=== PATIENT | male | born 1935 | race Caucasian/White ===

== ENCOUNTER 2017-11-29 19:01 | Inpatient (IN) | payer BC, OTHER ==
--- NOTE | 2017-11-29 19:40 | PDOC ---
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 The patient is complaining he is unable to lay flat and must sleep on 3 pillows. The patient ambulates with a cane and has to stop after 1 block secondary to his SOB. The patient was seen by Dr. Crump 2 weeks ago who prescribed him 20g of lasix three times per week. The patient denies chest pain, headache and dizziness. Denies fever, chills, nausea, vomit, diarrhea and constipation. Denies dysuria, frequency, urgency and hematuria. Allergies: NKA Past surgical history: None reported. Social history: No reported alcohol, drug, or cigarette use. PCP: Dr. Crump <Dayna Langley - Last Filed: 11/29/17 20:45> - General History Source: Patient Exam Limitations: No Limitations <Amee Mendoza - Last Filed: 11/29/17 21:34> - General Chief Complaint: Respiratory Stated Complaint: RESPIRATORY DISTRESS Time Seen by Provider: 11/29/17 19:40 Past History <Dayna Langley - Last Filed: 11/29/17 20:45> <Amee Mendoza - Last Filed: 11/29/17 21:34> - Past Medical History Allergies/Adverse Reactions: Allergies Allergy/AdvReac Type Severity Reaction Status Date / Time No Known Allergies Allergy Verified 11/29/17 19:38 Review of Systems - Review of Systems Able to Perform ROS?: Yes Comments:: 11/29/17 20:57 ROS: A complete review of 10 out of 10 review of systems is taken and is negative apart from what is previously mentioned below and in the HPI. <Dayna Langley - Last Filed: 11/29/17 20:45> *Physical Exam - Vital Signs Last Vital Signs Temp Pulse Resp BP Pulse Ox 80 18 152/95 95 11/29/17 19:39 11/29/17 19:39 11/29/17 19:39 11/29/17 19:39 - Physical Exam Comments: 11/29/17 20:45 GENERAL: The patient is in no acute distress. HEAD: Normal with no signs of trauma. EYES: PERRLA, EOMI, sclera anicteric, conjunctiva clear. ENT: Ears normal, nares patent, oropharynx clear without exudates. Moist mucous membranes. NECK: Normal range of motion, supple without lymphadenopathy, JVD, or masses. LUNGS: (+) Crackles throughout all lung lindquist. No wheezes. HEART:Regular rate and rhythm, normal S1 and S2 without murmur, rub or gallop. ABDOMEN: Soft, nontender, normoactive bowel sounds. No guarding, no rebound. No masses palpable. EXTREMITIES: (+) 1+ pitting edema. Normal range of motion, no edema. No clubbing or cyanosis. No erythema, or tenderness. NEUROLOGICAL: Cranial nerves II through XII grossly intact. Normal speech. No focal neurological deficits. MUSCULOSKELETAL: Back non-tender to palpation, no CVA tenderness SKIN: Warm, Dry, normal turgor, no rashes or lesions noted. <Dayna Langley - Last Filed: 11/29/17 20:45> ED Treatment Course - LABORATORY CBC & Chemistry Diagram: 11/29/17 20:29 11/29/17 20:29 - Medications Given in the ED: ED Medications Discontinued Medications Generic Name Dose Route Start Last Admin Trade Name Freq PRN Reason Stop Dose Admin Furosemide 40 mg 11/29/17 20:30 11/29/17 20:43 Lasix Injection - IVPUSH 11/29/17 20:31 40 mg ONCE ONE Administration <Dayna Langley - Last Filed: 11/29/17 20:45> - LABORATORY CBC & Chemistry Diagram: 11/29/17 20:29 11/29/17 20:29 <Amee Mendoza - Last Filed: 11/29/17 21:34> Medical Decision Making - Medical Decision Making 11/29/17 20:32 Mr Tavarez is an 82 yo M with a history of HTN, HLD, CM, CHF, 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 Pt presents to the ER with family via EMS S/p shortness of breath, present for approximately 3 weeks Shortness of breath has been worsening No fevers or chills (+) cough Non productive Per family has complained of chest pain but he has no complaints of chest pain to me Pt can walk with a cane, has to stop after approximately 1 block Unable to lay flat (sleeps on 3 pillows) On examination: Crackles through out all lungs lindquist Pt with supplemental O2 in place RRR No abd tenderness 1+ pitting edema EKG: paced at 80bpm Will do Labs Continue supplemental O2 Portable CXR EKG lunchroom monitor Portable CXR: CARDIOMEGALY, PLEURAL EFFUSION LEFT SIDE, HILAR CONGESTION Will give Lasix 40mg IV 11/29/17 21:32 Laboratory Tests 11/29/17 11/29/17 11/29/17 20:29 20:29 20:29 WBC 7.4 Hgb 12.7 Hct 37.8 Plt Count 212 Sodium 139 Potassium 4.6 Chloride 107 Carbon Dioxide 25 BUN 22 H Creatinine 1.3 Random Glucose 129 H Creatine Kinase 84 Troponin I 0.03 B-Natriuretic Peptide 3424.52 H Urine Blood 2+ H Urine Nitrite Negative Ur Leukocyte Esterase Negative 11/29/17 21:[address] Mirza Will admit to tele Strict I&Os Clinical impression: CHF, initial presentation <Amee Mendoza - Last Filed: 11/29/17 21:34> *DC/Admit/Observation/Transfer - Attestations Scribe Attestion: 11/29/17 20:46 Documentation prepared by Dayna Langley, acting as medical detailist for Amee Mendoza MD. <Dayna Langley - Last Filed: 11/29/17 20:45> - Discharge Dispostion Admit: Yes <Amee Mendoza - Last Filed: 11/29/17 21:34> Diagnosis at time of Disposition: Congestive heart failure Qualifiers: Heart failure type: other Qualified Code(s): I50.9 - Heart failure, unspecified - Discharge Dispostion Condition at time of disposition: Good - Referrals Referrals: Sherice Crump MD [Primary Care Provider] - - Patient Instructions - Post Discharge Activity
[2017-11-29] MEDS ORDERED: FUROSEMIDE 40 MG/4 ML INJECTABLE VIAL IVPUSH ONE (20:30)
[2017-11-29 20:41] LABS: BASO % 0.7 % (0-2.0); EOS % 1.7 % (0-4.5); HEMATOCRIT 37.8 % (35.4-49); HEMOGLOBIN 12.7 GM/dL (11.7-16.9); MCHC 33.6 g/dl (32.0-35.9); MEAN CELL VOLUME 92.2 fl (80-96); MONO % 12.2 % (3.8-10.2); NEUT % 66.4 % (42.8-82.8); PLATELET COUNT 212 K/MM3 (134-434); RDW 13.5 % (11.9-15.9); WHITE BLOOD COUNT 7.4 K/mm3 (4.0-10.0)
[2017-11-29] MEDS ORDERED: FUROSEMIDE 40 MG/4 ML INJECTABLE VIAL ONE (20:45)
[2017-11-29 21:04] LABS: ALBUMIN 3.3 g/dl (3.4-5.0); ANION GAP 7 (8-16); BILIRUBIN,TOTAL 0.4 mg/dL (0.2-1.0); BLOOD UREA NITROGEN 22 mg/dL (7-18); CALCIUM 8.1 mg/dL (8.5-10.1); CHLORIDE 107 mmol/L (98-107); CO2 25 mmol/L (21-32); CREATININE 1.3 mg/dL (0.7-1.3); GLUCOSE,RANDOM 129 mg/dL (74-106); POTASSIUM 4.6 mmol/L (3.5-5.1); SGOT/AST 18 U/L (15-37); SGPT/ALT 39 U/L (12-78); SODIUM 139 mmol/L (136-145); TOT PROT 7.3 g/dl (6.4-8.2)
[2017-11-29 21:06] LABS: ALK PHOS 150 U/L (45-117); N-TERMINAL BNP 3424.52 pg/ml (5-450)
[2017-11-29 21:15] LABS: URINE APPEARANCE CLEAR; URINE BILIRUBIN NEGATIVE (<2.0 mg/dL); URINE BLOOD 2+ (NEGATIVE); URINE COLOR YELLOW; URINE GLUCOSE (UA) NEGATIVE (NEGATIVE); URINE KETONE NEGATIVE (NEGATIVE); URINE LEUK ESTERASE NEGATIVE (NEGATIVE); URINE NITRITE NEGATIVE (NEGATIVE); URINE PROTEIN 2+ (NEGATIVE)
--- NOTE | 2017-11-29 21:30 | PN ---
Teaching Attending Note Name of Resident: Rand Almanza ATTENDING PHYSICIAN STATEMENT I saw and evaluated the patient. I reviewed the resident's note and discussed the case with the resident. I agree with the resident's findings and plan as documented. SUBJECTIVE: 82 yo M with pmhx. of htn, hld, MIx5 (10/23), s/p ICD/PPM, CVA (07/23) [facility], CVA L. Residual Hemiparesis who presented with worsening shortness of breath. Also with non-productive cough that started 3 weeks ago. States he is unable to lay flat. Notes he needs to sleep with 3 pillows. States he is able to ambulate 1 block, until he gets short of breath. States he takes Lasix 20 mg three times a week and he has been complient with his meds. Notes no current chest pain or pressure. States shortness of breath has significantly since receiving Lasix. No N,V,D. Denies any fevers or chills. States he has never smoked. OBJECTIVE: Physical: VS: Initial Vital Signs Pulse Resp BP Pulse Ox 80 18 152/95 95 11/29/17 19:39 11/29/17 19:39 11/29/17 19:39 11/29/17 19:39 GEN: NAD, Resting in shel[place], AA0X3, Speaking Full Sentences HEENT: NCAT, L. eye difficulty opening, non-reactive(hx. of retinal detachement ) R. Reactive to light. Sclera non-Icteric, Throat without erythema or exudates. CARD: ICD/PPM, RRR S1, S2 RESP: Coarse breath sounds/crackles bases bilaterally. ABD: BSx4, NTD to palpation EXT: +1 Pitting edema, bilateral and equal CBCD WBC 7.4 K/mm3 (4.0-10.0) 11/29/17 20: RBC 4.10 M/mm3 (4.00-5.60) 11/29/17 20: Hgb 12.7 GM/dL (11.7-16.9) 11/29/17 20: Hct 37.8 % (35.4-49) 11/29/17 20: MCV 92.2 fl (80-96) 11/29/17 20: MCHC 33.6 g/dl (32.0-35.9) 11/29/17 20: RDW 13.5 % (11.9-15.9) 11/29/17 20: Plt Count 212 K/MM3 (134-434) 11/29/17 20: MPV 8.0 fl (7.5-11.1) 11/29/17 20: CMP Sodium 139 mmol/L (136-145) 11/29/17 20: Potassium 4.6 mmol/L (3.5-5.1) 11/29/17 20: Chloride 107 mmol/L (98-107) 11/29/17 20: Carbon Dioxide 25 mmol/L (21-32) 11/29/17 20: Anion Gap 7 (8-16) L 11/29/17 20: BUN 22 mg/dL (7-18) H 11/29/17 20: Creatinine 1.3 mg/dL (0.7-1.3) 11/29/17 20: Creat Clearance w eGFR 52.72 (>60) 11/29/17: Random Glucose 129 mg/dL (74-106) H 11/29/17: Calcium 8.1 mg/dL (8.5-10.1) L 11/29/17 20: Total Bilirubin 0.4 mg/dL (0.2-1.0) 11/29/17 20: AST 18 U/L (15-37) 11/29/17 20: ALT 39 U/L (12-78) 11/29/17 20: Alkaline Phosphatase 150 U/L (45-117) H 11/29/17 20: Total Protein 7.3 g/dl (6.4-8.2) 11/29/17 20: Albumin 3.3 g/dl (3.4-5.0) L 11/29/17 20: CARDIAC ENZYMES Creatine Kinase 84 IU/L (39-308) 11/29/17 20: Troponin I 0.03 ng/ml (0.00-0.05) 11/29/17 20:29 CXR: Moderate Pulm. Vasc. congestion with suggestive interstitial edema and small bilateral plueral effusiona. Opacity with RLL atelectasis and/or pneumonia. Home Medications Medication Instructions Recorded Amiodarone HCl 200 mg PO 11/29/17 Aspirin 81 mg PO 11/29/17 Atorvastatin Ca [Lipitor] 40 mg PO HS 11/29/17 Carvedilol 25 mg PO BID 11/29/17 Clopidogrel Bisulfate [Plavix] 11/29/17 Lisinopril [Zestril] 2.5 mg PO 11/29/17 Phenytoin Na Extended [Dilantin -] 100 mg PO BID 11/29/17 ECHO (done 2 weeks ago ad per pt) EKG: Paced QtC 528 ASSESSMENT AND PLAN: 82 M with Pmhx of HTN, HLD, CVA L. Residual Hemiparesis, AR X5, ICD/PPM, who presents with shortness of breath, being admitted for acute chf exacerbation'' 1.) Acute Systolic Heart Failure - Trend Trop/EKG - Lasix IV - Echo Records - Daily Weights/Strict I/O - NA/Fluid restrict - C/W Coreg/Foreign 2.) CAD hx. OF AR - C/W ASA, Plavix, Coreg/Foreign - Trend Trop/Ekg - Amio 3.) Hx. OF CVA - C/W ASA, Plavix 4.) Seizure Hx. - C/W Phenytoin 5.) HLD - C/W Statin 6.) Dvt Ppx - Heparin [address] [employer]
[2017-11-29 21:41] LABS: URINE BACTERIA FEW /hpf (NONE SEEN); URINE MUCUS 1+
--- NOTE | 2017-11-29 22:15 | HP ---
CHIEF COMPLAINT: SOB x three weeks PCP: Dr. 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 As per pt, for the past three weeks, he developed SOB which has prevented him from lying flat at night. For this reason , he has needed to sleep on multiple pillows. During this time, he has also endorsed nonproductive cough and increased dyspnea on exertion when ambulating. He last saw Dr. Crump two weeks ago, and had an ECHO done - EF at the time, unknown. He was placed on lasix 20mg three times a week. Pt denies PAYNE, fever, chills, chest pain or pressure, or changes in urinary or bowel function. Pt follows with hydraulic rockbreaker operator, Dr. Lindsay from [facility] and had an appointment three days ago. As per pt, no changes were made in his tx at that time. 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 Smoking: denies Alcohol:denies Drugs: denies Family History: father- passed from [place], age 56. uncle- passed from [place], age 46. Allergies No Known Allergies Allergy (Verified 11/29/17 19:38) HOME MEDICATIONS: REVIEW OF SYSTEMS CONSTITUTIONAL: Absent: fever, chills, diaphoresis, generalized weakness, malaise, loss of appetite, weight change HEENT: Absent: rhinorrhea, nasal congestion, throat pain, throat swelling, difficulty swallowing, mouth swelling, ear pain, eye pain, visual changes CARDIOVASCULAR: Absent: chest pain, syncope, palpitations, irregular heart rate, lightheadedness , peripheral edema RESPIRATORY: +cough, SOB, KEITH Absent: orthopnea, wheezing, stridor, hemoptysis GASTROINTESTINAL: Absent: abdominal pain, abdominal distension, nausea, vomiting, diarrhea, constipation, melena, hematochezia GENITOURINARY: Absent: dysuria, frequency, urgency, hesitancy, hematuria, flank pain, genital pain MUSCULOSKELETAL: Absent: myalgia, arthralgia, joint swelling, back pain, neck pain SKIN: Absent: rash, itching, pallor HEMATOLOGIC/IMMUNOLOGIC: Absent: easy bleeding, easy bruising, lymphadenopathy, frequent infections ENDOCRINE: Absent: unexplained weight gain, unexplained weight loss, heat intolerance, cold intolerance NEUROLOGIC: Absent: headache, focal weakness or paresthesias, dizziness, unsteady gait, seizure, mental status changes, bladder or bowel incontinence PSYCHIATRIC: Absent: anxiety, depression, suicidal or homicidal ideation, hallucinations. PHYSICAL EXAMINATION Vital Signs - 24 hr 11/29/17 19:39 Pulse Rate 80 Respiratory 18 Rate Blood Pressure 152/95 O2 Sat by Pulse 95 Oximetry (%) GENERAL: Pleasant gentleman, sitting comfortably. Awake, alert, and fully oriented, in no acute distress. on 3L 02 HEAD: Normal with no signs of trauma. EYES: R pupil equal, round and reactive to light, extraocular movements intact, sclera anicteric, conjunctiva clear. L eye - with opacity, clear d/c EARS, NOSE, THROAT: Ears normal, nares patent, oropharynx clear without exudates. NECK: Normal range of motion, supple LUNGS: crackles appreciated at bases b/l. without rhonchi, wheezing. without accessory m. usage HEART: Paced rate and rhythm, normal S1 and S2 without murmur, rub or gallop. ABDOMEN: Soft, nontender, not distended, normoactive bowel sounds, no guarding, no rebound, no masses. LOWER EXTREMITIES: 2+ posterior tibial pulses, warm, well-perfused. No calf tenderness. 1+ pitting edema b/l NEUROLOGICAL: Cranial nerves II-XII intact. Normal speech. Motor strength 4/5 in upper and lower extremities. sensation intact PSYCHIATRIC: Cooperative. Laboratory Results 11/29/17 11/29/17 11/29/17 20:29 20:29 20:29 WBC 7.4 RBC 4.10 Hgb 12.7 Hct 37.8 MCV 92.2 MCH 31.0 MCHC 33.6 RDW 13.5 Plt Count 212 MPV 8.0 Neutrophils % 66.4 Lymphocytes % 19.0 Monocytes % 12.2 H Eosinophils % 1.7 Basophils % 0.7 Sodium 139 Potassium 4.6 Chloride 107 Carbon Dioxide 25 Anion Gap 7 L BUN 22 H Creatinine 1.3 Creat Clearance w eGFR 52.72 Random Glucose 129 H Calcium 8.1 L Total Bilirubin 0.4 AST 18 ALT 39 Alkaline Phosphatase 150 H Creatine Kinase 84 Troponin I 0.03 B-Natriuretic Peptide 3424.52 H Total Protein 7.3 Albumin 3.3 L Urine Color Yellow Urine Appearance Clear Urine pH 5.0 Ur Specific [place] 1.020 Urine Protein 2+ H Urine Glucose (UA) Negative Urine Ketones Negative Urine Blood 2+ H Urine Nitrite Negative Urine Bilirubin Negative Urine Urobilinogen 2.0 Ur Leukocyte Esterase Negative Urine WBC (Auto) 2-5 Urine RBC (Auto) 0-3 Urine Bacteria Few Urine Mucus 1+ TESTS EKG: paced rhythm, vent rate 80bpm, QTc ~546ms CXR: cardiomegaly, with L sided effusion ASSESSMENT/PLAN: 82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 Pt admitted to telemetry for acute decompensated systolic CHF exacerbation. #Acute decompensated systolic CHF exacerbation -Last EF 20% - had ECHO recently with Dr. Crump, will need report -Will need cardio records from [facility] - Dr. Lindsay -Systolic CHF, s/p AICD (placed in 2016) -Received 40mg IVP x 1 lasix in ED -Will start on 40mg IVP lasix qd starting tomorrow -Continue carvedilol 25mg PO BID, lisinopril 2.5 mg qd -Trend trops q6h. 0.03>0.06 likely 2/2 demand. continue to follow. serial EKGs -Daily weights -Sodium controlled 2g diet -Fluid restriction -Shavon -Telemetry monitoring -Cardio consult- Dr. Patino #Prolonged QTc -Likely 2/2 paced rhythm -However avoid QT prolonging agents -Will hold trazodone #HTN- controlled -Continue lisinopril 2.5 mg PO qd #HLD -Continue lipitor 40mg qHS #CAD, hx AR x 5 (last Oct 2016) -Continue aspirin 81mg qd -Plavix 75mg qd #Hx CVA -Continue aspirin 81mg qd -Plavix 75mg qd #Hx seizures -Continue phenytoin 100mg PO BID -Last dose taken this evening, before ED admission #Hx NSVT -Continue amiodarone 200mg qd - started 07/26/17 #Depression -Will hold home dose of trazodone 50mg qHS as pt with prolonged Qtc #F/E/N -Avoid fluids at this time, to avoid overload -Continue to monitor electrolytes -Sodium controlled diet #PPX DVT: Heparin 5000 SQ BID #Dispo continued monitoring on telemetry Visit type - Emergency Visit Emergency Visit: Yes ED Registration Date: 11/29/17 Care time: The patient presented to the Emergency Department on the above date and was hospitalized for further evaluation of their emergent condition. - New Patient This patient is new to me today: Yes Date on this admission: 11/30/17 - Critical Care Critical Care patient: No Hospitalist Screening - Colonoscopy Questionnaire Colonoscopy Questionnaire: Colonoscopy Questionnaire - Patient: 50 - 75 years old and never had a screening colonoscopy: Unknown History of colon or rectal polyps, or CA: Unknown History of IBD, Crohn's disease or UC: Unknown History of abdominal radiation therapy as a child: Unknown - Relative: 1 with colon or rectal CA, or polyps at age 60 or younger: Unknown Colon or rectal CA diagnosed at age 45 or younger: Unknown Multiple relatives with colon or rectal CA: Unknown - Outcome: Screening Result: Negative Screen
[2017-11-29] MEDS ORDERED: PHENYTOIN NA EXTENDED 100 MG CAPSULE (FP) PO STA (22:54)
[2017-11-29] MEDS: HEPARIN NA (PORCINE) 5,000 UNITS/ML 1ML VIAL SQ SCH (23:34)
[2017-11-30 03:58] VITALS: BMI 23.9
[2017-11-30 07:06] LABS: BASO % 0.6 % (0-2.0); EOS % 1.2 % (0-4.5); HEMATOCRIT 37.2 % (35.4-49); HEMOGLOBIN 12.5 GM/dL (11.7-16.9); LYMPH % 21.4 % (8-40); MCH 30.8 pg (25.7-33.7); MCHC 33.5 g/dl (32.0-35.9); MEAN PLT VOLUME 8.1 fl (7.5-11.1); MONO % 14.5 % (3.8-10.2); NEUT % 62.3 % (42.8-82.8); PLATELET COUNT 213 K/MM3 (134-434); RBC 4.04 M/mm3 (4.00-5.60); RDW 13.3 % (11.9-15.9); WHITE BLOOD COUNT 7.3 K/mm3 (4.0-10.0)
[2017-11-30 07:20] LABS: ANION GAP 11 (8-16); BLOOD UREA NITROGEN 22 mg/dL (7-18); CHLORIDE 103 mmol/L (98-107); CO2 27 mmol/L (21-32); POTASSIUM 3.9 mmol/L (3.5-5.1); SODIUM 141 mmol/L (136-145)
[2017-11-30 07:22] LABS: CALCIUM 7.9 mg/dL (8.5-10.1); CREATININE 1.1 mg/dL (0.7-1.3); GLUCOSE,RANDOM 118 mg/dL (74-106); PHOSPHOROUS 3.5 mg/dL (2.5-4.9)
--- NOTE | 2017-11-30 09:15 | PN ---
Progress Note, Physician - Current Medication List Current Medications: Active Medications Amiodarone HCl (Cordarone -) 200 mg PO DAILY [facility] Aspirin (Asa -) 81 mg PO DAILY [facility] Atorvastatin Calcium (Lipitor -) 40 mg PO HS [facility] Carvedilol (Coreg -) 25 mg PO BID [facility] Clopidogrel Bisulfate (Plavix -) 75 mg PO DAILY [facility] Furosemide (Lasix Injection -) 40 mg IVPUSH DAILY [facility] Heparin Sodium (Porcine) (Heparin -) 5,000 unit SQ BID [facility] Last Admin: 11/29/17 23:34 Dose: 5,000 unit Lisinopril (Prinivil) 2.5 mg PO DAILY [facility] Phenytoin Sodium (Dilantin -) 100 mg PO BID [facility] - Objective Vital Signs: Vital Signs Temperature 98.0 F 11/30/17 06:00 Pulse Rate 78 11/30/17 06:00 Respiratory Rate 20 11/30/17 06:00 Blood Pressure 150/84 11/30/17 06:00 O2 Sat by Pulse Oximetry (%) 96 11/30/17 03:44 Cardiovascular: Yes: Murmur, S1, S2 Respiratory: Yes: Rales Gastrointestinal: Yes: Normal Bowel Sounds, Soft Edema: Yes Edema: LLE: 1+, RLE: 1+ Labs: CBC, BMP 11/30/17 05:18 11/30/17 05:18 Problem List - Problems (1) CHF (congestive heart failure) Assessment/Plan: -Last EF 20% - had ECHO recently with Dr. Crump, will need report -Will need cardio records from [facility] - Dr. Lindsay -Systolic CHF, s/p AICD (placed in 2017) -Received 40mg IVP x 1 lasix in ED -Will start on 40mg IVP lasix qd starting tomorrow -Continue carvedilol 25mg PO BID, lisinopril 2.5 mg qd -Trend trops q6h. 0.03>0.06 likely 2/2 demand. continue to follow. serial EKGs -Daily weights -Sodium controlled 2g diet -Fluid restriction -Shavon -Telemetry monitoring -Cardio consult- Dr. Patino Code(s): I50.9 - HEART FAILURE, UNSPECIFIED Qualifiers: Heart failure type: systolic Heart failure chronicity: acute on chronic Qualified Code(s): I50.23 - Acute on chronic systolic (congestive) heart failure (2) Prolonged QT interval Assessment/Plan: FOLLOW UP NUCLEAR PHYSICIAN Code(s): R94.31 - ABNORMAL ELECTROCARDIOGRAM [ECG] [EKG] (3) CVA (cerebral vascular accident) Assessment/Plan: ON ASA AND PLAVIX Code(s): I63.9 - CEREBRAL INFARCTION, UNSPECIFIED (4) Arrhythmia Assessment/Plan: OBTAIN OLD RECORDS FOLLOW MONITOR ON AMIO Code(s): I49.9 - CARDIAC ARRHYTHMIA, UNSPECIFIED
[2017-11-30] MEDS ORDERED: POTASSIUM CHLORIDE TABS 20 MEQ TABLET.ER (FP) PO ONE (10:00)
[2017-11-30] MEDS: CARVEDILOL 25 MG TABLET (FP) PO SCH ×2 (11:11→21:26)
[2017-11-30] MEDS: CLOPIDOGREL BISULFATE 75 MG TABLET (FP) PO SCH (11:11)
[2017-11-30] MEDS: PHENYTOIN NA EXTENDED 100 MG CAPSULE (FP) PO SCH ×2 (11:11→21:26)
[2017-11-30] MEDS: LISINOPRIL 5 MG TABLET (FP) PO SCH (11:11)
[2017-11-30] MEDS: AMIODARONE HCL 200 MG TABLET (FP) PO SCH (11:12)
[2017-11-30] MEDS: FUROSEMIDE 40 MG/4 ML INJECTABLE VIAL IVPUSH SCH (11:13)
[2017-11-30] MEDS: HEPARIN NA (PORCINE) 5,000 UNITS/ML 1ML VIAL SQ SCH ×2 (11:13→21:25)
[2017-11-30] MEDS: ASPIRIN 81 MG CHEWABLE TABLETS PO SCH (11:13)
--- NOTE | 2017-11-30 11:58 | CON.CARD ---
Consult Consult Specialty:: Cardiology Referred by:: Myrna Mirza Reason for Consultation:: CHF exacerbation - History of Present Illness Chief Complaint: SOB History of Present Illness: 82 year old male with a pmhx of htn, hld, NICM with LVEF 20% s/p AICD, CVA 2016 with residual hemiparesis, and on amiodarone for arrhythmic treatment who presents with sob. Patients says last few weeks has noticed increase in secretion, congestion, and some sob. Usually sleeps flat and now with 3 pillows. No chest pain or palpitations. No LE edema. States he takes furosemide three times a week when Dr. Lindsay (his supervisor coffee at [facility] states furosemide 20mg BID). No f/c/s. Feels better today and is comfortable. CXR with chf [id number] Trop 0.06 peak - History Source History Provided By: Patient, Family Member, Medical Record - Past Medical History ADMISSIONS OFFICER: Yes: CVA Cardio/Vascular: Yes: CHF, HTN, Hyperlipdemia - Past Surgical History Past Surgical History: Yes: Permanent Pacemaker - Alcohol/Substance Use Hx Alcohol Use: No - Smoking History Smoking history: Never smoked Have you smoked in the past 12 months: No Home Medications - Allergies Allergies/Adverse Reactions: Allergies Allergy/AdvReac Type Severity Reaction Status Date / Time No Known Allergies Allergy Verified 11/29/17 19:38 - Home Medications Home Medications: Ambulatory Orders Amiodarone HCl 200 mg PO 11/29/17 Aspirin 81 mg PO 11/29/17 Atorvastatin Ca [Lipitor] 40 mg PO HS 11/29/17 Carvedilol 25 mg PO BID 11/29/17 Clopidogrel Bisulfate [Plavix] 11/29/17 Lisinopril [Zestril] 2.5 mg PO 11/29/17 Phenytoin Na Extended [Dilantin -] 100 mg PO BID 11/29/17 Vital Signs: Vital Signs Temperature 98.0 F 11/30/17 06:00 Pulse Rate 78 11/30/17 06:00 Respiratory Rate 20 11/30/17 06:00 Blood Pressure 150/84 11/30/17 06:00 O2 Sat by Pulse Oximetry (%) 96 11/30/17 03:44 Constitutional: Yes: No Distress Neck: Yes: Supple Respiratory: Yes: Diminished (decreased BS at b/l bases) Gastrointestinal: Yes: Soft Cardiovascular: Yes: Regular Rate and Rhythm JVD: No Carotid Bruit: No Heart Sounds: Yes: S1, S2 Murmur: No: Systolic Murmur Edema: LLE: Trace, RLE: Trace - Other Data Labs, Other Data: CBC, BMP 11/30/17 05:18 11/30/17 05:18 Troponin, BNP 11/29/17 11/30/17 11/30/17 20:29 01:42 05:25 Troponin I 0.03 0.06 H D 0.04 D B-Natriuretic Peptide 3424.52 H 11/30/17 10:05 Troponin I 0.04 B-Natriuretic Peptide Troponin, BNP 11/29/17 11/30/17 11/30/17 20:29 01:42 05:25 Troponin I 0.03 0.06 H D 0.04 D B-Natriuretic Peptide 3424.52 H 11/30/17 10:05 Troponin I 0.04 B-Natriuretic Peptide Imaging - Results Chest X-ray: Report Reviewed EKG: Image Reviewed Problem List - Problems (1) CHF (congestive heart failure) Code(s): I50.9 - HEART FAILURE, UNSPECIFIED Qualifiers: Heart failure type: systolic Heart failure chronicity: acute on chronic Qualified Code(s): I50.23 - Acute on chronic systolic (congestive) heart failure Assessment/Plan 82 year old male with a pmhx of htn, hld, NICM with LVEF 20% s/p AICD, CVA 2016 with residual hemiparesis, and on amiodarone for arrhythmic treatment who presents with sob. 1) Acute on chronic chf exacerbation -Known nonischemic CM with an LVEF 20% -Likely needs more than three times a week furosemide as an outpatient Will continue furosemide 40mg IV daily. Monitor bun/cr, weights, I/O's, and lytes Treat K as needed. -Restarted home carvedilol 25mg and lisinopril 2.5mg and will adjust as needed -On tele with some pvc's and nsvt. On amiodarone 200mg daily. S/p AICD which reports being checked this past month. -No further cardiac testing at this time.
--- NOTE | 2017-11-30 17:01 | EKG ---
Test Reason : Blood Pressure : / mmHG Vent. Rate : 080 BPM Atrial Rate : 080 BPM P-R Int : 132 ms QRS Dur : 174 ms QT Int : 474 ms P-R-T Axes : 076 -76 087 degrees QTc Int : 546 ms POOR DATA QUALITY, INTERPRETATION MAY BE ADVERSELY AFFECTED Atrial-sensed ventricular-paced rhythm WITH OCCASIONAL PREMATURE VENTRICULAR COMPLEXES Biventricular pacemaker detected ABNORMAL ECG NO PREVIOUS ECGS AVAILABLE Confirmed by MD Anne-Marie, Kris ([id number]) on 11/30/2017 5:00:59 PM Referred By: Confirmed By:Kris Xie MD
[2017-11-30] MEDS: ATORVASTATIN CA 40 MG TABLET (FP) PO SCH (21:26)
--- NOTE | 2017-12-01 09:34 | PN ---
Progress Note, Physician History of Present Illness: FEELS BETTER - Current Medication List Current Medications: Active Medications Amiodarone HCl (Cordarone -) 200 mg PO DAILY [facility] Last Admin: 11/30/17 11:12 Dose: 200 mg Aspirin (Asa -) 81 mg PO DAILY [facility] Last Admin: 11/30/17 11:13 Dose: 81 mg Atorvastatin Calcium (Lipitor -) 40 mg PO HS [facility] Last Admin: 11/30/17 21:26 Dose: 40 mg Carvedilol (Coreg -) 25 mg PO BID [facility] Last Admin: 11/30/17 21:26 Dose: 25 mg Clopidogrel Bisulfate (Plavix -) 75 mg PO DAILY [facility] Last Admin: 11/30/17 11:11 Dose: 75 mg Furosemide (Lasix Injection -) 40 mg IVPUSH DAILY [facility] Last Admin: 11/30/17 11:13 Dose: 40 mg Heparin Sodium (Porcine) (Heparin -) 5,000 unit SQ BID [facility] Last Admin: 11/30/17 21:25 Dose: 5,000 unit Lisinopril (Prinivil) 2.5 mg PO DAILY [facility] Last Admin: 11/30/17 11:11 Dose: 2.5 mg Phenytoin Sodium (Dilantin -) 100 mg PO BID [facility] Last Admin: 11/30/17 21:26 Dose: 100 mg - Objective Vital Signs: Vital Signs Temperature 98.5 F 12/01/17 02:00 Pulse Rate 52 L 12/01/17 06:00 Respiratory Rate 20 12/01/17 06:00 Blood Pressure 104/56 12/01/17 06:00 O2 Sat by Pulse Oximetry (%) 100 11/30/17 21:00 Cardiovascular: Yes: S1, S2 Respiratory: Yes: Regular, CTA Bilaterally Gastrointestinal: Yes: Normal Bowel Sounds, Soft Edema: Yes Integumentary: Yes: Venous Stasis Changes Labs: CBC, BMP 11/30/17 05:18 11/30/17 05:18 Problem List - Problems (1) CHF (congestive heart failure) Assessment/Plan: -Last EF 20% - had ECHO recently with Dr. Crump, will need report -Will need cardio records from [facility] - Dr. Lindsay -Systolic CHF, s/p AICD (placed in 2017) -LASIX 40mg IVP DAILY -Continue carvedilol 25mg PO BID, lisinopril 2.5 mg qd -Trend trops q6h. 0.03>0.06 likely 2/2 demand. continue to follow. serial EKGs -Daily weights-158 -CXR -Sodium controlled 2g diet -Fluid restriction -Sands -Telemetry monitoring -Cardio consult- Dr. Patino Code(s): I50.9 - HEART FAILURE, UNSPECIFIED Qualifiers: Heart failure type: systolic Heart failure chronicity: acute on chronic Qualified Code(s): I50.23 - Acute on chronic systolic (congestive) heart failure (2) Prolonged QT interval Assessment/Plan: FOLLOW UP METAL [facility]ORTER Code(s): R94.31 - ABNORMAL ELECTROCARDIOGRAM [ECG] [EKG] (3) CVA (cerebral vascular accident) Assessment/Plan: ON ASA AND PLAVIX Code(s): I63.9 - CEREBRAL INFARCTION, UNSPECIFIED (4) Arrhythmia Assessment/Plan: OBTAIN OLD RECORDS FOLLOW MONITOR ON AMIO S/P PACEMAKER Code(s): I49.9 - CARDIAC ARRHYTHMIA, UNSPECIFIED
[2017-12-01 10:50] LABS: ANION GAP 8 (8-16); BLOOD UREA NITROGEN 26 mg/dL (7-18); CHLORIDE 105 mmol/L (98-107); CO2 28 mmol/L (21-32); CREATININE 1.2 mg/dL (0.7-1.3); GLUCOSE,RANDOM 209 mg/dL (74-106); POTASSIUM 4.1 mmol/L (3.5-5.1); SODIUM 141 mmol/L (136-145)
[2017-12-01] MEDS: PHENYTOIN NA EXTENDED 100 MG CAPSULE (FP) PO SCH ×2 (11:03→21:22)
[2017-12-01] MEDS: CLOPIDOGREL BISULFATE 75 MG TABLET (FP) PO SCH (11:03)
[2017-12-01] MEDS: LISINOPRIL 5 MG TABLET (FP) PO SCH (11:03)
[2017-12-01] MEDS: ASPIRIN 81 MG CHEWABLE TABLETS PO SCH (11:03)
--- NOTE | 2017-12-01 11:03 | PN ---
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 Patients says last few weeks has noticed increase in secretion, congestion, and some sob. Usually sleeps flat and now with 3 pillows. No chest pain or palpitations. No LE edema. States he takes furosemide three times a week when Dr. 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 No f/c/s. Feels better today and is comfortable. CXR with chf [id number] Trop 0.06 peak - Current Medication List Current Medications: Active Medications Amiodarone HCl (Cordarone -) 200 mg PO DAILY [facility] Last Admin: 11/30/17 11:12 Dose: 200 mg Aspirin (Asa -) 81 mg PO DAILY [facility] Last Admin: 11/30/17 11:13 Dose: 81 mg Atorvastatin Calcium (Lipitor -) 40 mg PO HS [facility] Last Admin: 11/30/17 21:26 Dose: 40 mg Carvedilol (Coreg -) 25 mg PO BID [facility] Last Admin: 11/30/17 21:26 Dose: 25 mg Clopidogrel Bisulfate (Plavix -) 75 mg PO DAILY [facility] Last Admin: 11/30/17 11:11 Dose: 75 mg Furosemide (Lasix Injection -) 40 mg IVPUSH DAILY [facility] Last Admin: 11/30/17 11:13 Dose: 40 mg Heparin Sodium (Porcine) (Heparin -) 5,000 unit SQ BID [facility] Last Admin: 11/30/17 21:25 Dose: 5,000 unit Lisinopril (Prinivil) 2.5 mg PO DAILY [facility] Last Admin: 11/30/17 11:11 Dose: 2.5 mg Phenytoin Sodium (Dilantin -) 100 mg PO BID [facility] Last Admin: 11/30/17 21:26 Dose: 100 mg - Objective Vital Signs: Vital Signs Temperature 98.5 F 12/01/17 02:00 Pulse Rate 52 L 12/01/17 06:00 Respiratory Rate 20 12/01/17 06:00 Blood Pressure 104/56 12/01/17 06:00 O2 Sat by Pulse Oximetry (%) 100 11/30/17 21:00 Constitutional: Yes: No Distress Neck: Yes: Supple Cardiovascular: Yes: Regular Rate and Rhythm, S1, S2. 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 1) Acute on chronic chf exacerbation -Known nonischemic CM with an LVEF 20% -Likely needs more than three times a week furosemide as an outpatient Would change to furosemide 40mg po daily after todays IV dose. Treat K as needed. -Restarted home carvedilol 25mg and lisinopril 2.5mg and will adjust as needed -On tele with some pvc's and nsvt. On amiodarone 200mg daily. S/p AICD which reports being checked this past month. -No further cardiac testing at this time. Will sign off as likely DC home from cardiac standpoint tomorrow on daily furosemide
[2017-12-01] MEDS: AMIODARONE HCL 200 MG TABLET (FP) PO SCH (11:04)
[2017-12-01] MEDS: CARVEDILOL 25 MG TABLET (FP) PO SCH ×3 (11:04→21:25)
[2017-12-01] MEDS: HEPARIN NA (PORCINE) 5,000 UNITS/ML 1ML VIAL SQ SCH ×2 (11:04→21:22)
[2017-12-01] MEDS: FUROSEMIDE 40 MG/4 ML INJECTABLE VIAL IVPUSH SCH (11:04)
[2017-12-01] MEDS: ATORVASTATIN CA 40 MG TABLET (FP) PO SCH (21:22)
[2017-12-02 07:09] LABS: ANION GAP 9 (8-16); BLOOD UREA NITROGEN 33 mg/dL (7-18); CALCIUM 8.3 mg/dL (8.5-10.1); CHLORIDE 106 mmol/L (98-107); CO2 28 mmol/L (21-32); CREATININE 1.2 mg/dL (0.7-1.3); GLUCOSE,RANDOM 106 mg/dL (74-106); POTASSIUM 4.4 mmol/L (3.5-5.1); SODIUM 143 mmol/L (136-145)
[2017-12-02] MEDS: CLOPIDOGREL BISULFATE 75 MG TABLET (FP) PO SCH (10:26)
[2017-12-02] MEDS: LISINOPRIL 5 MG TABLET (FP) PO SCH (10:26)
[2017-12-02] MEDS: FUROSEMIDE 40 MG/4 ML INJECTABLE VIAL IVPUSH SCH (10:26)
[2017-12-02] MEDS: PHENYTOIN NA EXTENDED 100 MG CAPSULE (FP) PO SCH ×2 (10:26→22:00)
[2017-12-02] MEDS: AMIODARONE HCL 200 MG TABLET (FP) PO SCH (10:26)
[2017-12-02] MEDS: ASPIRIN 81 MG CHEWABLE TABLETS PO SCH (10:26)
[2017-12-02] MEDS: CARVEDILOL 25 MG TABLET (FP) PO SCH ×2 (10:26→23:03)
[2017-12-02] MEDS: HEPARIN NA (PORCINE) 5,000 UNITS/ML 1ML VIAL SQ SCH ×2 (10:26→22:00)
--- NOTE | 2017-12-02 11:50 | PN ---
Progress Note, Physician Chief Complaint: CHF exacerbation History of Present Illness: NAD, family at bedside SOB on exertion Sitting in chair, feels better sitting up CXR some improvement - Current Medication List Current Medications: Active Medications Amiodarone HCl (Cordarone -) 200 mg PO DAILY [facility] Last Admin: 12/02/17 10:26 Dose: 200 mg Aspirin (Asa -) 81 mg PO DAILY [facility] Last Admin: 12/02/17 10:26 Dose: 81 mg Atorvastatin Calcium (Lipitor -) 40 mg PO HS [facility] Last Admin: 12/01/17 21:22 Dose: 40 mg Carvedilol (Coreg -) 25 mg PO BID [facility] Last Admin: 12/02/17 10:26 Dose: 25 mg Clopidogrel Bisulfate (Plavix -) 75 mg PO DAILY [facility] Last Admin: 12/02/17 10:26 Dose: 75 mg Furosemide (Lasix Injection -) 40 mg IVPUSH DAILY [facility] Last Admin: 12/02/17 10:26 Dose: 40 mg Heparin Sodium (Porcine) (Heparin -) 5,000 unit SQ BID [facility] Last Admin: 12/02/17 10:26 Dose: 5,000 unit Lisinopril (Prinivil) 2.5 mg PO DAILY [facility] Last Admin: 12/02/17 10:26 Dose: 2.5 mg Phenytoin Sodium (Dilantin -) 100 mg PO BID [facility] Last Admin: 12/02/17 10:26 Dose: 100 mg - Objective Vital Signs: Vital Signs Temperature 98.1 F 12/02/17 05:41 Pulse Rate 65 12/02/17 06:27 Respiratory Rate 18 12/02/17 06:27 Blood Pressure 119/65 12/02/17 06:27 O2 Sat by Pulse Oximetry (%) 100 12/01/17 20:30 Constitutional: Yes: Well Nourished, No Distress, Calm Respiratory: Yes: Regular Gastrointestinal: Yes: Normal Bowel Sounds Musculoskeletal: Yes: WNL Extremities: Yes: WNL Labs: CBC, BMP 11/30/17 05:18 12/02/17 06:15 Problem List - Problems (1) Acute exacerbation of CHF (congestive heart failure) Assessment/Plan: -Cardiology consult -IV diuresis -low sodium diet -repeat CXR Code(s): I50.9 - HEART FAILURE, UNSPECIFIED Assessment/Plan see problem list
[2017-12-02] MEDS: ATORVASTATIN CA 40 MG TABLET (FP) PO SCH (22:00)
--- NOTE | 2017-12-03 10:12 | PN ---
Progress Note, Physician Chief Complaint: CHF exacerbation History of Present Illness: NAD, family at bedside SOB on exertion Sitting in chair, feels better sitting up CXR some improvement Ambulating to bathroom, uses cane at home - Current Medication List Current Medications: Active Medications Amiodarone HCl (Cordarone -) 200 mg PO DAILY [facility] Last Admin: 12/02/17 10:26 Dose: 200 mg Aspirin (Asa -) 81 mg PO DAILY [facility] Last Admin: 12/02/17 10:26 Dose: 81 mg Atorvastatin Calcium (Lipitor -) 40 mg PO HS [facility] Last Admin: 12/02/17 22:00 Dose: 40 mg Carvedilol (Coreg -) 25 mg PO BID [facility] Last Admin: 12/02/17 23:03 Dose: 25 mg Clopidogrel Bisulfate (Plavix -) 75 mg PO DAILY [facility] Last Admin: 12/02/17 10:26 Dose: 75 mg Furosemide (Lasix -) 40 mg PO DAILY [facility] Heparin Sodium (Porcine) (Heparin -) 5,000 unit SQ BID [facility] Last Admin: 12/02/17 22:00 Dose: 5,000 unit Lisinopril (Prinivil) 2.5 mg PO DAILY [facility] Last Admin: 12/02/17 10:26 Dose: 2.5 mg Phenytoin Sodium (Dilantin -) 100 mg PO BID [facility] Last Admin: 12/02/17 22:00 Dose: 100 mg - Objective Vital Signs: Vital Signs Temperature 98.2 F 12/03/17 06:00 Pulse Rate 54 L 12/03/17 06:00 Respiratory Rate 18 12/03/17 06:00 Blood Pressure 131/68 12/03/17 06:00 O2 Sat by Pulse Oximetry (%) 100 12/02/17 21:00 Constitutional: Yes: Well Nourished, No Distress, Calm Cardiovascular: Yes: Regular Rate and Rhythm, Murmur Respiratory: Yes: Regular Gastrointestinal: Yes: Normal Bowel Sounds, Soft Musculoskeletal: Yes: WNL Extremities: Yes: WNL Edema: No Peripheral Pulses WNL: Yes Neurological: Yes: Alert, Oriented Psychiatric: Yes: Alert, Oriented Labs: CBC, BMP 11/30/17 05:18 12/02/17 06:15 Problem List - Problems (1) Acute exacerbation of CHF (congestive heart failure) Assessment/Plan: -Cardiology consult -D/C on PO furosemide 40 mg daily -low sodium diet -F/U with cardiology outpatient Code(s): I50.9 - HEART FAILURE, UNSPECIFIED Assessment/Plan see problem list
[2017-12-03] MEDS ORDERED: FUROSEMIDE 40 MG TABLET (FP) PO SCH (10:15)
[2017-12-03] MEDS: PHENYTOIN NA EXTENDED 100 MG CAPSULE (FP) PO SCH (10:41)
[2017-12-03] MEDS: AMIODARONE HCL 200 MG TABLET (FP) PO SCH (10:41)
[2017-12-03] MEDS: CARVEDILOL 25 MG TABLET (FP) PO SCH (10:41)
[2017-12-03] MEDS: ASPIRIN 81 MG CHEWABLE TABLETS PO SCH (10:42)
[2017-12-03] MEDS: CLOPIDOGREL BISULFATE 75 MG TABLET (FP) PO SCH (10:42)
[2017-12-03] MEDS: LISINOPRIL 5 MG TABLET (FP) PO SCH (10:42)
[2017-12-03] MEDS: FUROSEMIDE 40 MG/4 ML INJECTABLE VIAL IVPUSH SCH (10:45)
[2017-12-03] MEDS: HEPARIN NA (PORCINE) 5,000 UNITS/ML 1ML VIAL SQ SCH (10:45)
--- NOTE | 2017-12-03 10:47 | DS ---
Physical Examination Vital Signs: Vital Signs Temperature 98.2 F 12/03/17 06:00 Pulse Rate 54 L 12/03/17 06:00 Respiratory Rate 18 12/03/17 06:00 Blood Pressure 131/68 12/03/17 06:00 O2 Sat by Pulse Oximetry (%) 100 12/02/17 21:00 Constitutional: Yes: Well Nourished, No Distress Cardiovascular: Yes: Regular Rate and Rhythm, Murmur Respiratory: Yes: Regular Gastrointestinal: Yes: Normal Bowel Sounds, Soft Musculoskeletal: Yes: WNL Extremities: Yes: WNL Edema: No Peripheral Pulses WNL: Yes Neurological: Yes: Alert, Oriented Psychiatric: Yes: Alert, Oriented Labs: CBC, BMP 11/30/17 05:18 12/02/17 06:15 Discharge Summary Reason For Visit: CONGESTIVE HEART FAILURE Current Active Problems Acute exacerbation of CHF (congestive heart failure) (Acute) Arrhythmia (Acute) CHF (congestive heart failure) (Acute) CVA (cerebral vascular accident) (Acute) Prolonged QT interval (Acute) Hospital Course: 82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 As per pt, for the past three weeks, he developed SOB which has prevented him from lying flat at night. For this reason , he has needed to sleep on multiple pillows. During this time, he has also endorsed nonproductive cough and increased dyspnea on exertion when ambulating. He last saw Dr. Crump two weeks ago, and had an ECHO done - EF at the time, unknown. He was placed on lasix 20mg three times a week. Pt denies PAYNE, fever, chills, chest pain or pressure, or changes in urinary or bowel function. Pt follows with care assistant, Dr. Lindsay from [facility] and had an appointment three days ago. As per pt, no changes were made in his tx at that time. Condition: Stable - Instructions Diet, Activity, Other Instructions: -Low sodium diet -Follow up with Cardiology and PCP within 2 weeks -Furosemide 40 mg, 1 tab daily Referrals: Kris Xie MD [Staff Physician] - Sherice Crump MD [Primary Care Provider] - Disposition: VNS/HOME HEALTH CARE - Home Medications Comprehensive Discharge Medication List: Ambulatory Orders Amiodarone HCl 200 mg PO 11/29/17 Aspirin 81 mg PO 11/29/17 Atorvastatin Ca [Lipitor] 40 mg PO HS 11/29/17 Carvedilol 25 mg PO BID 11/29/17 Clopidogrel Bisulfate [Plavix] 11/29/17 Lisinopril [Zestril] 2.5 mg PO 11/29/17 Phenytoin Na Extended [Dilantin -] 100 mg PO BID 11/29/17 Furosemide [Lasix -] 40 mg PO DAILY #30 tablet 12/03/17
[2017-12-03 12:31] VITALS: BP 142/89; PULSE 65; TEMP 98.4
--- NOTE | 2017-12-08 13:21 | EKG ---
Test Reason : Blood Pressure : / mmHG Vent. Rate : 065 BPM Atrial Rate : 065 BPM P-R Int : 118 ms QRS Dur : 172 ms QT Int : 502 ms P-R-T Axes : 050 269 088 degrees QTc Int : 522 ms POOR DATA QUALITY, INTERPRETATION MAY BE ADVERSELY AFFECTED Atrial-sensed ventricular-paced rhythm Biventricular pacemaker detected ABNORMAL ECG WHEN COMPARED WITH ECG OF 29-NOV-2017 20:19, PREMATURE VENTRICULAR COMPLEXES ARE NO LONGER PRESENT VENT. RATE HAS DECREASED BY 15 BPM Confirmed by CRISTEL ADDISON, ROQUE ([id number]) on 12/08/2017 1:20:43 PM Referred By: Confirmed By:ROQUE FAM MD
== END 2017-12-03 12:30 | disposition home health service (06) | DRG 292 ==
LOC: JER 19:01 → JERBED 21:34 → J2W 11-30 03:33
PROVIDERS: ADMIT Internal Medicine; ATTEND Family Medicine
DX: I11.0 Hypertensive heart disease with heart failure (principal); I69.354 Hemiplegia and hemiparesis following cerebral infarction affecting left non-dominant side; J98.11 Atelectasis; G40.89 Other seizures; I50.23 Acute on chronic systolic (congestive) heart failure; I42.9 Cardiomyopathy, unspecified; I25.10 Atherosclerotic heart disease of native coronary artery without angina pectoris; E78.5 Hyperlipidemia, unspecified; I25.2 Old myocardial infarction; Z95.1 Presence of aortocoronary bypass graft; I45.81 Long QT syndrome; F32.9 Major depressive disorder, single episode, unspecified; I49.9 Cardiac arrhythmia, unspecified
CPT/HCPCS: 36415; 71045-TC-FY; 80048; 80053; 81003; 81015; 82550; 82962; 83735; 83880; 84100; 84484; 85025; 87086; 93005; 93010; 99282-25; J1644

== ENCOUNTER 2018-09-01 16:04 | Inpatient (IN) | payer BC, OTHER ==
--- NOTE | 2018-09-01 18:12 | PDOC ---
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 On amoxicillin z 1 week course by pmd. +dark stools. +sick contacts. No fever, cp, n/v/d, urinary sx, leg swelling Uptitrated on lasix dosing; no other changes to medications. PMD: Dr Crump ---- ROS Constitutional: no fevers or chills. HEENT: no headache or dizziness. + congestion. CVS: no cp or syncope. Resp: +cough and SOB Gastrointestinal: no abdominal pain, nausea or vomiting. Genitourinary: no urinary sx, hematuria. MUSCULOSKELETAL: No joint pain and swelling. No neck or back pain. SKIN: no redness or skin changes, no discharge, no rash. No wounds. Hematologic: no easy bruising/bleeding. NEUROLOGIC: No headache, dizziness, LOC or altered mental status. No weakness, numbness or tingling. Allergic/Immunologic: no allergies All other systems reviewed and negative, or as documented in HPI. Physical exam: General: Well appearing, awake and alert, NAD. HEENT: NCAT, PERRL, EOMI, pale conjunctiva, anicteric, moist mucus membranes, clear oropharynx, no oral lesions.. Neck: neck supple, FROM; no JVD Resp: CTAB, normal and even respirations, no respiratory distress CVS: soft holosystolic murmur, 2+ peripheral pulses throughout, no peripheral edema Abdomen: soft, NTND Back: nontender, normal inspection and ROM MSK: no edema, SHABAZZ x4, ROM intact. No clubbing or cyanosis. normal bulk and tone. Extremities: no calf tenderness Neuro: alert Skin: warm and well perfused, cap refill <2 sec, normal color Past History - Past Medical History Allergies/Adverse Reactions: Allergies Allergy/AdvReac Type Severity Reaction Status Date / Time No Known Allergies Allergy Verified 09/01/18 16:19 Home Medications: Ambulatory Orders Amiodarone HCl 200 mg PO DAILY 11/29/17 Aspirin 81 mg PO DAILY 11/29/17 Atorvastatin Ca [Lipitor] 40 mg PO HS 11/29/17 Carvedilol 25 mg PO BID 11/29/17 Clopidogrel Bisulfate [Plavix] 75 mg PO DAILY 11/29/17 Phenytoin Na Extended [Dilantin -] 100 mg PO BID 11/29/17 Furosemide [Lasix -] 40 mg PO DAILY #30 tablet 12/03/17 Losartan Potassium 25 mg PO DAILY 09/02/18 Spironolactone 25 mg PO DAILY 09/02/18 traZODone HCL [Trazodone HCl] 50 mg PO HS 09/02/18 Cardiac Disorders: Yes ([place]) CVA: Yes COPD: No CHF: Yes Seizures: Yes - Surgical History Cardiac Surgery: Yes (pacemaker, defibrillator) - Suicide/Smoking/Psychosocial Hx Smoking History: Never smoked Have you smoked in the past 12 months: No Hx Alcohol Use: No Drug/Substance Use Hx: No Substance Use Type: None *Physical Exam - Vital Signs Last Vital Signs Temp Pulse Resp BP Pulse Ox 66 24 H 111/53 L 100 09/01/18 16:19 09/01/18 16:19 09/01/18 16:19 09/01/18 16:19 Moderate Sedation - Procedure Monitoring Vital Signs: Procedure Monitoring Vital Signs Temperature Pulse Rate 66 09/01/18 16:19 Respiratory Rate 24 H 09/01/18 16:19 Blood Pressure 111/53 L 09/01/18 16:19 O2 Sat by Pulse Oximetry (%) 100 09/01/18 16:19 ED Treatment Course - LABORATORY CBC & Chemistry Diagram: 09/03/18 05:30 09/03/18 05:30 - RADIOLOGY Radiology Studies Ordered: Category Date Time Status CHEST X-RAY PORTABLE* [RAD] Stat Radiology 09/01/18 17:40 Ordered Medical Decision Making - Medical Decision Making 09/03/18 16:31 hpi as do cumented VS normal no gross blood on stool exam. labs and lytes, trop/bnp, influenza sent baseline anemia per family dispo pending reeval and labs/workup to Dr Tinajero. likely admit due to persistent/worsening sob, with significant cardiac history and dark stools concerning for occult bleeding. *DC/Admit/Observation/Transfer Diagnosis at time of Disposition: Guaiac positive stools, Dyspnea Pneumonia Qualifiers: Pneumonia type: due to unspecified organism Laterality: right Lung location: unspecified part of lung Qualified Code(s): J18.9 - Pneumonia, unspecified organism - Discharge Dispostion Condition at time of disposition: Stable Decision to Admit order: Yes - Referrals - Patient Instructions - Post Discharge Activity
--- NOTE | 2018-09-01 19:16 | PDOC ---
*Physical Exam - Vital Signs Last Vital Signs Temp Pulse Resp BP Pulse Ox 66 24 H 111/53 L 100 09/01/18 16:19 09/01/18 16:19 09/01/18 16:19 09/01/18 16:19 Heart Score/ECG Review - ECG Impressions Comment:: 09/02/18 04:40 Twelve-lead EKG was performed and reviewed by me. Atrial sensed ventricular paced rhythm, frequeny PVCs Rate of 68 ED Treatment Course - LABORATORY CBC & Chemistry Diagram: 09/01/18 19:21 09/01/18 17:40 Medical Decision Making - Medical Decision Making 09/01/18 19:16 Pt signed out to me from Dr. Conner. Awaiting lab work and reassessment 82y F hx of htn, hl, chf (EF20%), AICD/PM, CAD s/p [place], CVA, NSVT, seizures, presents with complaint of sob, cough x 1 week productive of whitish sputum. was treated with amoxicillin with mild improvement. had gone to see dr. Crump who recommended him come to the ED for IV ABX yesterday. denies any cp, sob/rios , leg edema. 09/01/18 21:26 labs reviewed unremarkble cxr shows suggestion of infiltrate in R lung will give ctx and azithromycin will observe 09/02/18 00:05 case was discused with [employer], agrree with admission for further mangement giauac positive, hgb slightly low relative to prior stable fo rmed/surg *DC/Admit/Observation/Transfer Diagnosis at time of Disposition: Guaiac positive stools Pneumonia Qualifiers: Pneumonia type: due to unspecified organism Laterality: right Lung location: unspecified part of lung Qualified Code(s): J18.9 - Pneumonia, unspecified organism - Discharge Dispostion Condition at time of disposition: Stable Decision to Admit order: Yes - Referrals - Patient Instructions - Post Discharge Activity
[2018-09-01 19:41] LABS: BASO % 0.8 % (0-2.0); EOS % 1.4 % (0-4.5); HEMATOCRIT 28.9 % (35.4-49); HEMOGLOBIN 10.2 GM/dL (11.7-16.9); LYMPH % 26.4 % (8-40); MCH 31.6 pg (25.7-33.7); MCHC 35.3 g/dl (32.0-35.9); MEAN CELL VOLUME 89.5 fl (80-96); MEAN PLT VOLUME 7.9 fl (7.5-11.1); MONO % 12.2 % (3.8-10.2); NEUT % 59.2 % (42.8-82.8); PLATELET COUNT 238 K/MM3 (134-434); RBC 3.23 M/mm3 (4.00-5.60); RDW 13.7 % (11.9-15.9); WHITE BLOOD COUNT 5.1 K/mm3 (4.0-10.0)
[2018-09-01 20:02] LABS: INR 1.14 (0.83-1.09); PROTHROMBIN TIME (PATIENT) 13.5 SEC (9.7-13.0)
[2018-09-01 20:04] LABS: ACTIVATED PTT 30.6 SECONDS (25.2-36.5)
[2018-09-01 20:31] LABS: ALBUMIN 3.4 g/dl (3.4-5.0); ALK PHOS 130 U/L (45-117); ANION GAP 8 MMOL/L (8-16); BILIRUBIN,TOTAL 0.2 mg/dL (0.2-1); BLOOD UREA NITROGEN 28 mg/dL (7-18); CALCIUM 8.2 mg/dL (8.5-10.1); CHLORIDE 107 mmol/L (98-107); CO2 26 mmol/L (21-32); CREATININE 1.4 mg/dL (0.55-1.3); GLUCOSE,RANDOM 101 mg/dL (74-106); MAGNESIUM 2.4 mg/dL (1.8-2.4); N-TERMINAL BNP 4927.5 pg/ml (5-450); POTASSIUM 4.8 mmol/L (3.5-5.1); SGOT/AST 23 U/L (15-37); SGPT/ALT 36 U/L (13-61); SODIUM 141 mmol/L (136-145); TOT PROT 7.3 g/dl (6.4-8.2)
[2018-09-01] MEDS ORDERED: CEFTRIAXONE 1 GM in DEXTROSE 5%-WATER - 50 ML IVPB ONE (21:19)
[2018-09-01] MEDS ORDERED: AZITHROMYCIN IVPB 500 MG in DEXTROSE 5%-WATER - 250 ML IVPB ONE (21:19)
[2018-09-01] MEDS ORDERED: CEFTRIAXONE 1 GM/50 ML BAG ONE (22:25)
[2018-09-01] MEDS ORDERED: AZITHROMYCIN IVPB 500 MG/250 ML BAG IVPB ONE (23:07)
--- NOTE | 2018-09-02 00:29 | HP ---
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 Who presents to the ED with SOB, cough, nasal congestion, generalized weakness and malaise x 1 week. Patient reports that the cough is productive- white/yellow phlegm. He was recently on Amoxicillin for 7 days. Patient also reports having dark stools and recent sick contacts. Patient states that his last Colonoscopy was unremarkable. 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, Seizure Cardiovascular: Yes: CAD, CHF (LVEF 20%), HTN, Hyperlipdemia, MA (x5) - Past Surgical History Past Surgical History: Yes: AICD, Appendectomy, Permanent Pacemaker - Smoking History Smoking history: Never smoked Have you smoked in the past 12 months: No - Alcohol/Substance Use Hx Alcohol Use: No History of Substance Use: reports: None - Social History Usual Living Arrangement: Yes: With Child ADL: Independent 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, 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 [place] History of Recent Travel: No Home Medications - Allergies Allergies/Adverse Reactions: Allergies Allergy/AdvReac Type Severity Reaction Status Date / Time No Known Allergies Allergy Verified 09/01/18 16:19 - Home Medications Home Medications: Ambulatory Orders Amiodarone HCl 200 mg PO 11/29/17 Aspirin 81 mg PO 11/29/17 Atorvastatin Ca [Lipitor] 40 mg PO HS 11/29/17 Carvedilol 25 mg PO BID 11/29/17 Clopidogrel Bisulfate [Plavix] 11/29/17 Lisinopril [Zestril] 2.5 mg PO 11/29/17 Phenytoin Na Extended [Dilantin -] 100 mg PO BID 11/29/17 Furosemide [Lasix -] 40 mg PO DAILY #30 tablet 12/03/17 Family Disease History - Family Disease History Family Disease History: Heart Disease: Father (desceased [place] age 56) Other Family History: Uncle- MA age 46 Review of Systems - Review of Systems Constitutional: reports: Malaise, Weakness Eyes: reports: No Symptoms HENT: reports: No Symptoms Neck: reports: No Symptoms Cardiovascular: reports: Shortness of Breath Respiratory: reports: Cough, SOB Gastrointestinal: reports: Melena Genitourinary: reports: No Symptoms Breasts: reports: No Symptoms Reported Musculoskeletal: reports: No Symptoms Integumentary: reports: No Symptoms Neurological: reports: No Symptoms Endocrine: reports: No Symptoms Hematology/Lymphatic: reports: No Symptoms Psychiatric: reports: No Symptoms Physical Examination Vital Signs: Vital Signs Temperature Pulse Rate 66 09/01/18 16:19 Respiratory Rate 24 H 09/01/18 16:19 Blood Pressure 111/53 L 09/01/18 16:19 O2 Sat by Pulse Oximetry (%) 100 09/01/18 16:19 Constitutional: Yes: Well Nourished, No Distress, Calm Eyes: Yes: PERRL (R- eye L-eye iris opacity(blindness)) HENT: Yes: WNL, Atraumatic, Normocephalic Neck: Yes: WNL, Supple, Trachea Midline Cardiovascular: Yes: Regular Rate and Rhythm, S1, S2 Respiratory: Yes: Cough, Diminished (R- middle lobe, base) Gastrointestinal: Yes: WNL, Normal Bowel Sounds, Soft ...Rectal Exam: Yes: Guaiac Positive, Sphincter Tone Normal Renal/: Yes: WNL Breast(s): Yes: WNL Musculoskeletal: Yes: WNL Extremities: Yes: WNL Edema: No Peripheral Pulses WNL: Yes Integumentary: Yes: WNL Neurological: Yes: Alert, Oriented, Cran Nerves II-XII Intact, Pre-Existing Deficit (left sided), Weakness ...Motor Strength: LUE (4/5), LLE (4/5), RUE (5/5), RLE (5/5) Psychiatric: Yes: WNL, Alert, Oriented Labs: CBC, BMP 09/01/18 19:21 09/01/18 17:40 Laboratory Results - last 24 hr 09/01/18 09/01/18 09/01/18 17:40 19:21 19:21 WBC 5.1 RBC 3.23 L Hgb 10.2 L Hct 28.9 L D MCV 89.5 MCH 31.6 MCHC 35.3 RDW 13.7 Plt Count 238 MPV 7.9 Absolute Neuts (auto) 3.0 Neutrophils % 59.2 Lymphocytes % 26.4 D Monocytes % 12.2 H Eosinophils % 1.4 Basophils % 0.8 Nucleated RBC % 0 PT with INR 13.50 H INR 1.14 H PTT (Actin FS) 30.6 Sodium 141 Potassium 4.8 Chloride 107 Carbon Dioxide 26 Anion Gap 8 BUN 28 H Creatinine 1.4 H Creat Clearance w eGFR 48.40 Random Glucose 101 Calcium 8.2 L Magnesium 2.4 Total Bilirubin 0.2 AST 23 ALT 36 Alkaline Phosphatase 130 H Troponin I 0.02 B-Natriuretic Peptide 4927.5 H Total Protein 7.3 Albumin 3.4 Stool Occult Blood Blood Type Antibody Screen 09/01/18 09/01/18 19:21 21:13 WBC RBC Hgb Hct MCV MCH MCHC RDW Plt Count MPV Absolute Neuts (auto) Neutrophils % Lymphocytes % Monocytes % Eosinophils % Basophils % Nucleated RBC % PT with INR INR PTT (Actin FS) Sodium Potassium Chloride Carbon Dioxide Anion Gap BUN Creatinine Creat Clearance w eGFR Random Glucose Calcium Magnesium Total Bilirubin AST ALT Alkaline Phosphatase Troponin I B-Natriuretic Peptide Total Protein Albumin Stool Occult Blood Positive Blood Type O POSITIVE Antibody Screen Negative Intake & Output 08/30/18 08/31/18 09/01/18 09/02/18 23:59 23:59 23:59 23:59 Weight 72.575 kg Imaging - Results Chest X-ray: Image Reviewed EKG: Image Reviewed (Paced Rhythm with PVC) Problem List - Problems (1) Pneumonia Code(s): J18.9 - PNEUMONIA, UNSPECIFIED ORGANISM Qualifiers: Pneumonia type: due to unspecified organism Laterality: right Lung location: unspecified part of lung Qualified Code(s): J18.9 - Pneumonia, unspecified organism (2) Acute exacerbation of CHF (congestive heart failure) Code(s): I50.9 - HEART FAILURE, UNSPECIFIED (3) Guaiac positive stools Code(s): R19.5 - OTHER FECAL ABNORMALITIES (4) CAD (coronary artery disease) Code(s): I25.10 - ATHSCL HEART DISEASE OF [place] CORONARY ARTERY W/O ANG PCTRS (5) CVA (cerebral vascular accident) Code(s): I63.9 - CEREBRAL INFARCTION, UNSPECIFIED (6) History of seizure Code(s): Z87.898 - PERSONAL HISTORY OF OTHER SPECIFIED CONDITIONS Assessment/Plan 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 Admitted for Acute on Chronic CHF, Pneumonia, GI Bleed, for further evaluation of their emergent condition. Plan: 1. Acute on Chronic CHF hx LVEF 20% Chest Xray- pulm vascular congestion BNP 4927 Continue home meds Appreciate Cardiology consult Consider Echo 2. Community Acquired Pneumonia Likely secondary to failed outpatient therapy [id number] Score 2 Chest Xray- R- infiltrate Blood cultures-pending Urine Legionella Started on Cetriaxone, Azithromycin for CAP Appreciate ID consult Monitor CBC, BMP Monitor vitals Tylenol prn 3. GI Bleed Cardiac Monitoring Appreciate GI consult +stool occult last colonoscopy approx 8-10 yrs Clear Liquid Diet Monitor CBC 4. CAD s/p AICD/PPM s/p MIx5 continue home meds Monitor CBC, BMP Monitor renal function Monitor vitals 5. CVA Continue home meds Fall Precautions 6. Seizure Disorder stable Continue Dilantin Dilantin level in am Seizure Precautions FEN Fluid Restriction 1L Replete lytes prn Clear Liquid Diet DVT ppx OOB SCDs Hold AC secondary to GI Bleed Code Status: Full Code Dispo: Requires Inpatient Care Visit type - Emergency Visit Emergency Visit: Yes ED Registration Date: 09/01/18 Care time: The patient presented to the Emergency Department on the above date and was hospitalized for further evaluation of their emergent condition. - New Patient This patient is new to me today: Yes Date on this admission: 09/02/18 - Critical Care Critical Care patient: No
[2018-09-02 08:25] LABS: BASO % 1.4 % (0-2.0); EOS % 1.5 % (0-4.5); HEMATOCRIT 30.6 % (35.4-49); HEMOGLOBIN 10.2 GM/dL (11.7-16.9); LYMPH % 23.7 % (8-40); MCH 30.5 pg (25.7-33.7); MCHC 33.4 g/dl (32.0-35.9); MEAN CELL VOLUME 91.3 fl (80-96); MEAN PLT VOLUME 7.6 fl (7.5-11.1); MONO % 11.4 % (3.8-10.2); PLATELET COUNT 227 K/MM3 (134-434); RBC 3.35 M/mm3 (4.00-5.60); RDW 13.7 % (11.9-15.9); WHITE BLOOD COUNT 7.3 K/mm3 (4.0-10.0)
[2018-09-02 09:01] LABS: INR 1.16 (0.83-1.09); PROTHROMBIN TIME (PATIENT) 13.7 SEC (9.7-13.0)
[2018-09-02 09:03] LABS: ANION GAP 8 MMOL/L (8-16); BLOOD UREA NITROGEN 24 mg/dL (7-18); CALCIUM 8.2 mg/dL (8.5-10.1); CHLORIDE 109 mmol/L (98-107); CO2 24 mmol/L (21-32); CREATININE 1.3 mg/dL (0.55-1.3); GLUCOSE,RANDOM 101 mg/dL (74-106); SODIUM 141 mmol/L (136-145)
--- NOTE | 2018-09-02 09:39 | EKG ---
Test Reason : Blood Pressure : / mmHG Vent. Rate : 068 BPM Atrial Rate : 068 BPM P-R Int : 144 ms QRS Dur : 180 ms QT Int : 532 ms P-R-T Axes : 073 -88 072 degrees QTc Int : 565 ms Atrial-sensed ventricular-paced rhythm WITH FREQUENT PREMATURE VENTRICULAR COMPLEXES Biventricular pacemaker detected ABNORMAL ECG WHEN COMPARED WITH ECG OF 30-NOV-2017 01:49, PREMATURE VENTRICULAR COMPLEXES ARE NOW PRESENT VENT. RATE HAS INCREASED BY 3 BPM Confirmed by CRISTEL ADDISON, ROQUE ([id number]) on 09/02/2018 9:39:28 AM Referred By: Confirmed By:ROQUE FAM MD
[2018-09-02] MEDS ORDERED: CARVEDILOL 25 MG TABLET (FP) PO SCH (10:00)
[2018-09-02] MEDS ORDERED: AZITHROMYCIN IVPB 500 MG in DEXTROSE 5%-WATER - 250 ML IVPB SCH (10:00)
[2018-09-02] MEDS ORDERED: LISINOPRIL 5 MG TABLET (FP) PO SCH (10:00)
[2018-09-02] MEDS ORDERED: FUROSEMIDE 40 MG TABLET (FP) PO SCH (10:00)
[2018-09-02] MEDS ORDERED: CLOPIDOGREL BISULFATE 75 MG TABLET (FP) PO SCH (10:00)
[2018-09-02] MEDS ORDERED: PHENYTOIN NA EXTENDED 100 MG CAPSULE (FP) PO SCH (10:00)
--- NOTE | 2018-09-02 10:12 | PN ---
Progress Note (short form) - Note Progress Note: ID consult dictated imp/reccd 82 yo man pmh with cad, chf, ppm/aicd cough for one week with SOB s/p amox for one week cxray with congestion and possible bibasilar infiltrates no fevers possible pneumonia possible chf rocephin/zith yesterday rocephin/doxycycline send legionella urinary antigen Problem List - Problems (1) Pneumonia Code(s): J18.9 - PNEUMONIA, UNSPECIFIED ORGANISM Qualifiers: Pneumonia type: due to unspecified organism Laterality: right Lung location: unspecified part of lung Qualified Code(s): J18.9 - Pneumonia, unspecified organism (2) Acute exacerbation of CHF (congestive heart failure) Code(s): I50.9 - HEART FAILURE, UNSPECIFIED
[2018-09-02] MEDS: CEFTRIAXONE 1 GM in DEXTROSE 5%-WATER - 50 ML IVPB SCH (10:55)
--- NOTE | 2018-09-02 11:38 | CONS ---
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 He has white sputum. He has no hemoptysis. He was treated with amoxicillin for 7 days. He denies dizziness, headache, chest pain, abdominal pain, nausea, vomiting, constipation. I saw him this morning in the emergency room. He was given ceftriaxone and Zithromax last night and reports that he is feeling improved this morning. PAST MEDICAL HISTORY: Extensive. He has a history of CVA and seizure. He was in [facility] 2 years ago when he suffered from a stroke, and he fell. At that time, he injured his left eye. [place] he found out he had a detached retina and loss of vision in the left eye. History of coronary artery disease, CHF with low ejection fraction of 20%, hypertension, hyperlipidemia, NE x5. SURGICAL HISTORY: Notable for AICD with defibrillator, appendectomy, and permanent pacemaker. He has a history of a seizure disorder as well, and the stroke that has left him with no residual defects. He is blind in his left eye. SOCIAL HISTORY: No history of cigarette or substance use. He is . He lives with . He reports his has also had a cold for the last week and has been coughing. He is born in [facility]. 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 TRAVEL HISTORY: About 6 weeks back he was in [place]. He also travels frequently to [place] to visit his children. ALLERGIES: He has no known drug allergies. MEDICATIONS: At home include, amiodarone, aspirin, atorvastatin, Coreg, Plavix, Zestril, Dilantin, and Lasix. PRIMARY CARE PHYSICIAN: Dr. Crump. FAMILY HISTORY: Notable for heart disease in his father and uncle. REVIEW OF SYSTEMS: He has had some malaise. There has been no fevers, nausea, vomiting, diarrhea, dysuria, and otherwise feels well. PHYSICAL EXAMINATION: General: He is awake and alert. Vital Signs: Temperature is 97.8, pulse is 66, blood pressure is 117/75, respiratory rate is 18. He is saturating 97%. HEENT: He is normocephalic. His eyes are anicteric. His left eye is closed. He has no thrush or pharyngitis. Neck: Supple. He has no meningeal signs. Lungs: Have bibasilar crackles. His defibrillator site is without any erythema or tenderness. Heart: Regular rate and rhythm. Abdomen: Soft, nontender. Extremities: Without edema. LABORATORY DATA: His labs are notable for a chest x-ray that shows a large heart with congestive changes, a retrocardiac infiltrate, as well as a right basilar infiltrate, as well as AICD permanent pacemaker. Labs are notable for a white count of 7.3, hemoglobin 10.2, platelets are 227. INR is 1. BUN 24 and creatinine 1.3. No cultures were sent. He had already been started on antibiotics. IN SUMMARY: This is an 83-year-old man with cough, malaise, possible pneumonia, possible congestive heart failure. He received Rocephin and Zithromax yesterday. We will treat him with Rocephin and doxycycline given his prolonged QTc. Would doubt the value of blood cultures at this time as he has been started on antibiotics and is afebrile with a normal white count. Would send a legionella and pneumococcal urinary antigen. Further recommendations to follow. Gonzalez [id number]
[2018-09-02] MEDS ORDERED: AMIODARONE HCL 200 MG TABLET (FP) ONE (14:19)
[2018-09-02] MEDS: AMIODARONE HCL 200 MG TABLET (FP) PO SCH (14:20)
[2018-09-02] MEDS ORDERED: DOXYCYCLINE HYCLATE 100 MG CAPSULE PO ONE (14:29)
--- NOTE | 2018-09-02 15:37 | CON.CARD ---
Consult Consult Specialty:: Cardiology Reason for Consultation:: dyspnea - History of Present Illness History of Present Illness: 82 y.o.malew/ hx of HTN, NICM w/ AICD EF of 20%, PVD, prior stroke (R ANNE 2015; on ASA) who presents today with cough and congestion. He was recently treated with Abx. also noting black stools with some blood. He has no orthopnea, PND. cough is productive of yellow phlegm. 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[facility] History of Recent Travel: No Home Medications - Allergies Allergies/Adverse Reactions: Allergies Allergy/AdvReac Type Severity Reaction Status Date / Time No Known Allergies Allergy Verified 09/01/18 16:19 - Home Medications Home Medications: Ambulatory Orders Amiodarone HCl 200 mg PO DAILY 11/29/17 Aspirin 81 mg PO DAILY 11/29/17 Atorvastatin Ca [Lipitor] 40 mg PO HS 11/29/17 Carvedilol 25 mg PO BID 11/29/17 Clopidogrel Bisulfate [Plavix] 75 mg PO DAILY 11/29/17 Phenytoin Na Extended [Dilantin -] 100 mg PO BID 11/29/17 Furosemide [Lasix -] 40 mg PO DAILY #30 tablet 12/03/17 Losartan Potassium 25 mg PO DAILY 09/02/18 Spironolactone 25 mg PO DAILY 09/02/18 traZODone HCL [Trazodone HCl] 50 mg PO HS 09/02/18 Family Disease History - Family Disease History Family Disease History: Heart Disease: Father (desceased ND age 56) Other Family History: Uncle- ND age 46 Review of Systems - Review of Systems Constitutional: reports: Chills Eyes: reports: No Symptoms HENT: reports: No Symptoms Neck: reports: No Symptoms Cardiovascular: denies: Chest Pain, Edema, Palpitations, Shortness of Breath Respiratory: reports: Cough Vital Signs: Vital Signs Temperature 98 F 09/02/18 10:55 Pulse Rate 65 09/02/18 10:55 Respiratory Rate 18 09/02/18 10:55 Blood Pressure 142/81 09/02/18 10:55 O2 Sat by Pulse Oximetry (%) 98 09/02/18 10:55 Constitutional: Yes: Well Nourished, No Distress Eyes: Yes: Conjunctiva Clear, EOM Intact HENT: Yes: Atraumatic, Normocephalic Neck: Yes: Supple, Trachea Midline Respiratory: Yes: Regular, CTA Bilaterally Gastrointestinal: Yes: Normal Bowel Sounds, Soft Cardiovascular: Yes: Regular Rate and Rhythm JVD: No Carotid Bruit: No PMI: Non-Displaced Heart Sounds: Yes: S1, S2 Murmur: No: Systolic Murmur, Diastolic Murmur - Other Data Labs, Other Data: CBC, BMP 09/02/18 08:10 09/02/18 08:10 INR, PTT INR 1.16 (0.83-1.09) H 09/02/18 08:10 Troponin, BNP 09/01/18 17:40 Troponin I 0.02 B-Natriuretic Peptide 4927.5 H Troponin, BNP 09/01/18 17:40 Troponin I 0.02 B-Natriuretic Peptide 4927.5 H NSR VPC VPaced. Imaging - Results Chest X-ray: Report Reviewed (retrocardiac and right basilar infltrate.) Problem List - Problems (1) Guaiac positive stools Code(s): R19.5 - OTHER FECAL ABNORMALITIES (2) Pneumonia Code(s): J18.9 - PNEUMONIA, UNSPECIFIED ORGANISM Qualifiers: Pneumonia type: due to unspecified organism Laterality: right Lung location: unspecified part of lung Qualified Code(s): J18.9 - Pneumonia, unspecified organism (3) CHF (congestive heart failure) Code(s): I50.9 - HEART FAILURE, UNSPECIFIED Qualifiers: Heart failure type: systolic Heart failure chronicity: acute on chronic Qualified Code(s): I50.23 - Acute on chronic systolic (congestive) heart failure Assessment/Plan history of NICM EF 20% (echo [facility] 06/2018: Severe left heart dilatation. Severe diffuse left ventricular hypokinesis. EF 25 % Severe mitral valve regurgitation. Moderate tricuspid valve regurgitation. Moderate pulmonary hypertension.) NSVT on AMiodarone Chronic HFrEF on guideline directed therapy. Admitted with cough, likely PNA and Black stool. 1. HFrEF: Compensated heart failure without significant volume overload. Recommend continuing oral diuretic in addition to out patient heart failure regimen. Continue Losartan, COreg. Abx for PNA 2. NSVT history Continue amiodarone. Has prophylactic AICD. 3. GI bleeding No cardiac contraindication to GI workup and scope. Reconsult as needed.
--- NOTE | 2018-09-02 15:52 | PN ---
Progress Note, Physician Chief Complaint: Presented to ED with several days of black stool-Stool OB (+) Worsening SOB-CXR show retrocardiac infiltrate with atelectasis History of Present Illness: Previous notes and events appreciated examined patient at bedside awake and alert NAD WBC 7.3, afebrile Stool OB pos, Hg 10.2 - Current Medication List Current Medications: Active Medications Amiodarone HCl (Cordarone -) 200 mg PO DAILY [facility] Last Admin: 09/02/18 14:20 Dose: 200 mg Atorvastatin Calcium (Lipitor -) 40 mg PO HS [facility] Carvedilol (Coreg -) 25 mg PO BID [facility] Last Admin: 09/02/18 10:55 Dose: 25 mg Clopidogrel Bisulfate (Plavix -) 75 mg PO DAILY [facility] Last Admin: 09/02/18 10:00 Dose: 75 mg Doxycycline Hyclate (Vibramycin -) 100 mg PO BID@1000,1800 [facility] Furosemide (Lasix -) 40 mg PO DAILY [facility] Last Admin: 09/02/18 10:55 Dose: 40 mg Ceftriaxone Sodium 1 gm/ (Dextrose) 50 mls @ 100 mls/hr IVPB DAILY [facility]; Protocol Last Admin: 09/02/18 10:55 Dose: 100 mls/hr Lisinopril (Prinivil) 2.5 mg PO DAILY [facility] Last Admin: 09/02/18 10:55 Dose: 2.5 mg Phenytoin Sodium (Dilantin -) 100 mg PO BID [facility] Last Admin: 09/02/18 10:55 Dose: 100 mg - Objective Vital Signs: Vital Signs Temperature 98 F 09/02/18 10:55 Pulse Rate 65 09/02/18 10:55 Respiratory Rate 18 09/02/18 10:55 Blood Pressure 142/81 09/02/18 10:55 O2 Sat by Pulse Oximetry (%) 98 09/02/18 10:55 Constitutional: Yes: Well Nourished, Calm Eyes: Yes: Other (L eye blindness) Neck: Yes: Supple Cardiovascular: Yes: Regular Rate and Rhythm Respiratory: Yes: Diminished Gastrointestinal: Yes: Normal Bowel Sounds, Soft, Rectal Bleeding Musculoskeletal: Yes: Muscle Weakness Extremities: Yes: WNL Edema: No Integumentary: Yes: WNL Neurological: Yes: Alert, Oriented Psychiatric: Yes: Alert, Oriented Labs: CBC, BMP 09/02/18 08:10 09/02/18 08:10 INR, PTT INR 1.16 (0.83-1.09) H 09/02/18 08:10 <Sandy Greer - Last Filed: 09/02/18 17:56> - Current Medication List Current Medications: Active Medications Amiodarone HCl (Cordarone -) 200 mg PO DAILY [facility] Last Admin: 09/02/18 14:20 Dose: 200 mg Atorvastatin Calcium (Lipitor -) 40 mg PO HS [facility] Last Admin: 09/02/18 23:39 Dose: Not Given Doxycycline Hyclate (Vibramycin -) 100 mg PO BID@1000,1800 [facility] Last Admin: 09/02/18 18:41 Dose: Not Given Ceftriaxone Sodium 1 gm/ (Dextrose) 50 mls @ 100 mls/hr IVPB DAILY [facility]; Protocol Last Admin: 09/02/18 10:55 Dose: 100 mls/hr Pantoprazole Sodium 80 mg/ (Sodium Chloride) 100 mls @ 10 mls/hr IVPB Q10H [facility] Last Admin: 09/03/18 04:30 Dose: 10 mls/hr Phenytoin Sodium (Dilantin Injection -) 100 mg IVPB BID [facility] Last Admin: 09/03/18 03:00 Dose: 100 mg - Objective Vital Signs: Vital Signs Temperature 98.8 F 09/03/18 06:00 Pulse Rate 91 H 09/03/18 06:00 Respiratory Rate 25 H 09/03/18 06:00 Blood Pressure 134/67 09/03/18 06:00 O2 Sat by Pulse Oximetry (%) 99 09/02/18 22:00 Labs: CBC, BMP 09/03/18 05:30 09/03/18 05:30 INR, PTT INR 1.16 (0.83-1.09) H 09/02/18 08:10 <Sherice Crump - Last Filed: 09/03/18 08:00> Problem List - Problems (1) GI bleeding Code(s): K92.2 - GASTROINTESTINAL HEMORRHAGE, UNSPECIFIED (2) Guaiac positive stools Code(s): R19.5 - OTHER FECAL ABNORMALITIES (3) Pneumonia Code(s): J18.9 - PNEUMONIA, UNSPECIFIED ORGANISM Qualifiers: Pneumonia type: due to unspecified organism Laterality: right Lung location: unspecified part of lung Qualified Code(s): J18.9 - Pneumonia, unspecified organism (4) CHF (congestive heart failure) Code(s): I50.9 - HEART FAILURE, UNSPECIFIED Qualifiers: Heart failure type: systolic Heart failure chronicity: acute on chronic Qualified Code(s): I50.23 - Acute on chronic systolic (congestive) heart failure <Sandy Greer - Last Filed: 09/02/18 17:56> Assessment/Plan -GI consult appreciated, orders to transfuse 1U PRBC and 1 unit Platelet -start on IV protonix -EGD sched for 09/03 -clear liquid diet -BNP 4927, will trend BNP -cardiology consult appreciated -tele monitoring -cont with PO lasix -ID on board, cont IV ABT -SCD for DVT ppx -O2 NC PRN for SOB or SpO2 <90% <Sandy Greer - Last Filed: 09/02/18 17:56> I AGREE WITH THE ABOVE NOTE. 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 <Sherice Crump - Last Filed: 09/03/18 08:00>
--- NOTE | 2018-09-02 16:48 | CON.GI ---
Consult Referred by:: Sherice Crump - History of Present Illness History of Present Illness: Patient is a 82 y/o male with past medical history of HTN, NICM with AICD, CHF with EF 20% on chronic aspirin and plavix use. Sent to ER for several episode of melena since 3 days ago. Also note to be stool occult blood positive, in ER Hg 10.This evening he had episode of rectal bleeding. 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 History of Recent Travel: No Home Medications - Allergies Allergies/Adverse Reactions: Allergies Allergy/AdvReac Type Severity Reaction Status Date / Time No Known Allergies Allergy Verified 09/01/18 16:19 - Home Medications Home Medications: Ambulatory Orders Amiodarone HCl 200 mg PO DAILY 11/29/17 Aspirin 81 mg PO DAILY 11/29/17 Atorvastatin Ca [Lipitor] 40 mg PO HS 11/29/17 Carvedilol 25 mg PO BID 11/29/17 Clopidogrel Bisulfate [Plavix] 75 mg PO DAILY 11/29/17 Phenytoin Na Extended [Dilantin -] 100 mg PO BID 11/29/17 Furosemide [Lasix -] 40 mg PO DAILY #30 tablet 12/03/17 Losartan Potassium 25 mg PO DAILY 09/02/18 Spironolactone 25 mg PO DAILY 09/02/18 traZODone HCL [Trazodone HCl] 50 mg PO HS 09/02/18 Family Disease History - Family Disease History Family Disease History: Heart Disease: Father (desceased [place] age 56) Other Family History: Uncle- [place] age 46 Review of Systems - Review of Systems Constitutional: denies: No Symptoms, Chills, Diaphoresis, Fever, Lethargy, Loss of Appetite, Malaise, Night Sweats, Unintentional Wgt. Loss, Weakness, Other Eyes: denies: No Symptoms, Blind Spots, Blurred Vision, Double Vision, Eye Pain , Floaters, Photophobia, Recent Change in Vision, Other HENT: denies: No Symptoms, Difficult Swallowing, Ear Discharge, Ear Pain, Epistaxis, Gingival Bleeding, Hearing Loss, Mouth Swelling, Nasal Congestion, Ocular Prosthesis, Throat Pain, Toothache, Ringing in Ears, Other Neck: denies: No Symptoms, Decreased ROM, Lumps, Pain on Movement, Stiffness, Swollen Glands, Tenderness, Other Cardiovascular: denies: No Symptoms, Chest Pain, Edema, Palpitations, Shortness of Breath, Other Gastrointestinal: reports: Melena. denies: Abdominal Pain, Constipation, Dysphagia Physical Exam-GI Vital Signs: Vital Signs Temperature 98 F 09/02/18 16:29 Pulse Rate 64 09/02/18 16:29 Respiratory Rate 18 09/02/18 16:29 Blood Pressure 114/58 L 09/02/18 16:29 O2 Sat by Pulse Oximetry (%) 100 09/02/18 16:29 Constitutional: Yes: Well Nourished Eyes: Yes: Conjunctiva Clear Neck: Yes: Supple Cardiovascular: Yes: Regular Rate and Rhythm Respiratory: Yes: CTA Bilaterally ...Palpate: Yes: Soft. No: Firm/Rigid, Guarding, Hepatomegaly, Mass, Splenomegaly, Tenderness Labs: CBC, BMP 09/02/18 08:10 09/02/18 08:10 INR, PTT INR 1.16 (0.83-1.09) H 09/02/18 08:10 Problem List - Problems (1) GI bleeding Assessment/Plan: IV Protonix FOR EGD transfuse 1 unit of platelets (on chronic Plavix use) transfuse 1 unit of PRBC d/w with Dr Ashby approved admission to the ICU Code(s): K92.2 - GASTROINTESTINAL HEMORRHAGE, UNSPECIFIED
[2018-09-02 18:37] LABS: HEMATOCRIT 24.2 % (35.4-49); HEMOGLOBIN 8.3 GM/dL (11.7-16.9); MCH 31.4 pg (25.7-33.7); MCHC 34.4 g/dl (32.0-35.9); MEAN PLT VOLUME 7.9 fl (7.5-11.1); PLATELET COUNT 224 K/MM3 (134-434); RBC 2.66 M/mm3 (4.00-5.60); RDW 13.7 % (11.9-15.9); WHITE BLOOD COUNT 6.4 K/mm3 (4.0-10.0)
[2018-09-02] MEDS: DOXYCYCLINE HYCLATE 100 MG CAPSULE PO SCH (18:41)
--- NOTE | 2018-09-02 19:03 | CONSULT ---
Consultation: REQUESTING PROVIDER: Sherice Crump CONSULT REQUEST: We have been asked to medically evaluate this patient for GIB. 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 Pt had episode of BRPBR in the evening and repeat Hb declined to 8.3 by 6pm. Additionally on presentation c/o SOB, cough, nasal congestion, generalized weakness and malaise x 1 week, had R-sided infiltrate on CXR, recently treated w / amoxicillin x 7 days. Denies f/c, PAYNE, c/p, palpitations. Admitted to ICU for hemodynamic stabilization and monitoring while on Protonix infusion. REVIEW OF SYSTEMS: As per HPI. PHYSICAL EXAMINATION Vital Signs - 24 hr 09/02/18 09/02/18 09/02/18 05:14 07:25 10:55 Temperature 97.8 F 98 F Pulse Rate Pulse Rate [ 66 65 Right Radial] Respiratory 18 18 Rate Blood Pressure Blood Pressure 117/75 142/81 [Left Arm] O2 Sat by Pulse 100 97 98 Oximetry (%) 09/02/18 09/02/18 09/02/18 16:29 17:00 17:02 Temperature 98 F 97.1 F L 97.1 F L Pulse Rate 68 68 Pulse Rate [ 64 Right Radial] Respiratory 18 18 18 Rate Blood Pressure 106/60 106/60 Blood Pressure 114/58 L [Left Arm] O2 Sat by Pulse 100 Oximetry (%) 09/02/18 17:57 Temperature Pulse Rate Pulse Rate [ Right Radial] Respiratory Rate Blood Pressure Blood Pressure [Left Arm] O2 Sat by Pulse 99 Oximetry (%) GENERAL: Awake, alert, and fully oriented, in no acute distress. HEAD: Normal with no signs of trauma. EYES: Pupils equal, round and reactive to light, extraocular movements intact, sclera anicteric, conjunctiva clear. No lid lag. EARS, NOSE, THROAT: Ears normal, nares patent, oropharynx clear without exudates. Moist mucous membranes. NECK: Normal range of motion, supple without lymphadenopathy, JVD, or masses. LUNGS: Breath sounds equal, clear to auscultation bilaterally. No wheezes, and no crackles. No accessory muscle use. HEART: Regular rate and rhythm, normal S1 and S2 without murmur, rub or gallop. ABDOMEN: Soft, nontender, not distended, normoactive bowel sounds, no guarding, no rebound, no masses. No hepatomegaly or splenomegaly. MUSCULOSKELETAL: Normal range of motion at all joints. No bony deformities or tenderness. No CVA tenderness. UPPER EXTREMITIES: 2+ pulses, warm, well-perfused. No cyanosis. No clubbing. Cap refill <2 seconds. No peripheral edema. LOWER EXTREMITIES: 2+ pulses, warm, well-perfused. No calf tenderness. No peripheral edema. NEUROLOGICAL: Cranial nerves II-XII intact. Normal speech. Normal gait. PSYCHIATRIC: Cooperative. Good eye contact. Appropriate mood and affect. SKIN: Warm, dry, normal turgor, no rashes or lesions noted. Laboratory Results - last 24 hr 09/01/18 09/01/18 09/01/18 17:40 19:21 19:21 WBC 5.1 RBC 3.23 L Hgb 10.2 L Hct 28.9 L D MCV 89.5 MCH 31.6 MCHC 35.3 RDW 13.7 Plt Count 238 MPV 7.9 Absolute Neuts (auto) 3.0 Neutrophils % 59.2 Lymphocytes % 26.4 D Monocytes % 12.2 H Eosinophils % 1.4 Basophils % 0.8 Nucleated RBC % 0 PT with INR 13.50 H INR 1.14 H PTT (Actin FS) 30.6 Sodium 141 Potassium 4.8 Chloride 107 Carbon Dioxide 26 Anion Gap 8 BUN 28 H Creatinine 1.4 H Creat Clearance w eGFR 48.40 Random Glucose 101 Calcium 8.2 L Magnesium 2.4 Total Bilirubin 0.2 AST 23 ALT 36 Alkaline Phosphatase 130 H Troponin I 0.02 B-Natriuretic Peptide 4927.5 H Total Protein 7.3 Albumin 3.4 Stool Occult Blood Phenytoin Blood Type Antibody Screen Crossmatch 09/01/18 09/01/18 09/02/18 19:21 21:13 08:10 WBC 7.3 RBC 3.35 L Hgb 10.2 L Hct 30.6 L MCV 91.3 MCH 30.5 MCHC 33.4 RDW 13.7 Plt Count 227 MPV 7.6 Absolute Neuts (auto) 4.5 Neutrophils % 62.0 Lymphocytes % 23.7 Monocytes % 11.4 H Eosinophils % 1.5 Basophils % 1.4 Nucleated RBC % 0 PT with INR INR PTT (Actin FS) Sodium Potassium Chloride Carbon Dioxide Anion Gap BUN Creatinine Creat Clearance w eGFR Random Glucose Calcium Magnesium Total Bilirubin AST ALT Alkaline Phosphatase Troponin I B-Natriuretic Peptide Total Protein Albumin Stool Occult Blood Positive Phenytoin Blood Type O POSITIVE Antibody Screen Negative Crossmatch 09/02/18 09/02/18 09/02/18 08:10 08:10 08:10 WBC RBC Hgb Hct MCV MCH MCHC RDW Plt Count MPV Absolute Neuts (auto) Neutrophils % Lymphocytes % Monocytes % Eosinophils % Basophils % Nucleated RBC % PT with INR 13.70 H INR 1.16 H PTT (Actin FS) Sodium 141 Potassium 5.0 Chloride 109 H Carbon Dioxide 24 Anion Gap 8 BUN 24 H Creatinine 1.3 Creat Clearance w eGFR 52.72 Random Glucose 101 Calcium 8.2 L Magnesium Total Bilirubin AST ALT Alkaline Phosphatase Troponin I B-Natriuretic Peptide Total Protein Albumin Stool Occult Blood Phenytoin 4.2 L Blood Type Antibody Screen Crossmatch 09/02/18 09/02/18 18:00 18:00 WBC 6.4 RBC 2.66 L Hgb 8.3 L Hct 24.2 L D MCV 91.0 MCH 31.4 MCHC 34.4 RDW 13.7 Plt Count 224 MPV 7.9 Absolute Neuts (auto) Neutrophils % Lymphocytes % Monocytes % Eosinophils % Basophils % Nucleated RBC % PT with INR INR PTT (Actin FS) Sodium Potassium Chloride Carbon Dioxide Anion Gap BUN Creatinine Creat Clearance w eGFR Random Glucose Calcium Magnesium Total Bilirubin AST ALT Alkaline Phosphatase Troponin I B-Natriuretic Peptide Total Protein Albumin Stool Occult Blood Phenytoin Blood Type Antibody Screen Crossmatch See Detail Active Medications Generic Name Dose Route Start Last Admin Trade Name Freq PRN Reason Stop Dose Admin Amiodarone HCl 200 mg 09/02/18 10:00 09/02/18 14:20 Cordarone - PO 200 mg DAILY NEELA Administration Atorvastatin Calcium 40 mg 09/02/18 22:00 Lipitor - PO HS NEELA Carvedilol 25 mg 09/02/18 10:00 09/02/18 10:55 Coreg - PO 25 mg BID NEELA Administration Clopidogrel Bisulfate 75 mg 09/02/18 10:00 09/02/18 10:00 Plavix - PO 75 mg DAILY NEELA Administration Doxycycline Hyclate 100 mg 09/02/18 18:00 09/02/18 18:41 Vibramycin - PO Not Given BID@1000,1800 NEELA Furosemide 40 mg 09/02/18 10:00 09/02/18 10:55 Lasix - PO 40 mg DAILY NEELA Administration Ceftriaxone Sodium 1 gm/ 50 mls @ 100 mls/hr 09/02/18 10:00 09/02/18 10:55 Dextrose IVPB 100 mls/hr DAILY NEELA Administration Protocol Pantoprazole Sodium 80 mg/ 100 mls @ 10 mls/hr 09/02/18 18:00 Sodium Chloride IVPB Q10H NEELA 8 MG/HR Lisinopril 2.5 mg 09/02/18 10:00 09/02/18 10:55 Prinivil PO 2.5 mg DAILY NEELA Administration Phenytoin Sodium 100 mg 09/02/18 10:00 09/02/18 10:55 Dilantin - PO 100 mg BID NEELA Administration ASSESSMENT/PLAN: Patient is an 82 y/o M w/ PMHx CAD w/ AICD, CVA w/ residual L sided weakness, CHF with EF 20%, chronic ASA/Plavix, Sz disorder, episodes of NSVT on amiodoarone, p/w melena and hematochezia, additionally under treatment for CAP. #GIB -IV Protonix -1U Plts, 1 U PRBC -for EGD in AM unless repeat CBC indicated need for emergent endoscopy -trend CBC -remainder as per GI #CAP -f/u cultures, antigens -ID following -Ceftriaxone/Doxycycline as per ID #CV -cardiology following -cont amiodarone, atorvastatin -hold lisinopril, furosemide, coreg to enable physiologic response to further bleeding if necessary -hold ASA/plavix d/t bleeding #neuro -cont home dilantin #FEN -IVF PRN per volume assessment given Pt's reduced EF -monitor and correct electrolytes -NPO #PPx -DVT: SCDs -GI: PTX gtt #code -full #Dispo: We will continue to follow the patient in the ICU. Thank you for this consultative opportunity. Visit type - Emergency Visit Emergency Visit: Yes ED Registration Date: 09/01/18 Care time: The patient presented to the Emergency Department on the above date and was hospitalized for further evaluation of their emergent condition. - New Patient This patient is new to me today: Yes Date on this admission: 09/02/18 - Critical Care Critical Care patient: Yes Total Critical Care Time (in minutes): 40 Critical Care Statement: The care of this patient involved high complexity decision making to prevent further life threatening deterioration of the patient 's condition and/or to evaluate & treat vital organ system(s) failure or risk of failure.
[2018-09-02] MEDS: PANTOPRAZOLE SODIUM 80 MG in SODIUM CHLORIDE 100 ML IVPB SCH (19:30)
[2018-09-02] MEDS ORDERED: LACTATED RINGERS SOLUTION 1,000 ML/1,000 ML INFUS.BAG IV SCH (23:15)
[2018-09-02] MEDS: ATORVASTATIN CA 40 MG TABLET (FP) PO SCH (23:39)
[2018-09-02 23:40] LABS: BASO % 0.6 % (0-2.0); EOS % 1.1 % (0-4.5); HEMATOCRIT 24.1 % (35.4-49); HEMOGLOBIN 8.2 GM/dL (11.7-16.9); LYMPH % 23.1 % (8-40); MCH 30.7 pg (25.7-33.7); MEAN CELL VOLUME 90.4 fl (80-96); MEAN PLT VOLUME 7.5 fl (7.5-11.1); MONO % 10.8 % (3.8-10.2); NEUT % 64.4 % (42.8-82.8); PLATELET COUNT 199 K/MM3 (134-434); RBC 2.67 M/mm3 (4.00-5.60); RDW 13.8 % (11.9-15.9)
[2018-09-03] MEDS ORDERED: LORazepam 2 MG/ML SDV VIAL ONE (00:43)
[2018-09-03] MEDS ORDERED: MIDAZOLAM HCL 5 MG/1 ML Single Dose Vial ONE ×2 (00:54→01:13)
[2018-09-03] MEDS ORDERED: LORazepam 2 MG/ML SDV VIAL IVPUSH ONE (00:59)
[2018-09-03] MEDS ORDERED: MIDAZOLAM HCL 5 MG/1 ML Single Dose Vial IVPUSH ONE ×2 (01:00→01:35)
--- NOTE | 2018-09-03 01:53 | PROC ---
Central Line Insertion Indication: Poor Venous Access Risks and Benefits Explained: Yes (to daughter) Consent on Chart: Yes (from daughter) Central Line: Triple Lumen Catheter Anesthesia: 1% Lidocaine Sterile Technique: Yes Ultrasound Guided Assistance: Yes Position: Right Femoral Sterile Dressing Applied: Yes Remarks: Dr. Shannon Aware
[2018-09-03] MEDS: PHENYTOIN SODIUM 100 MG/2 ML VIAL IVPB SCH ×3 (03:00→22:41)
[2018-09-03] MEDS: PANTOPRAZOLE SODIUM 80 MG in SODIUM CHLORIDE 100 ML IVPB SCH ×3 (04:30→23:30)
[2018-09-03 05:51] LABS: HEMATOCRIT 21.7 % (35.4-49); HEMOGLOBIN 7.3 GM/dL (11.7-16.9); MCH 29.5 pg (25.7-33.7); MCHC 33.5 g/dl (32.0-35.9); MEAN CELL VOLUME 88.2 fl (80-96); MEAN PLT VOLUME 7.9 fl (7.5-11.1); PLATELET COUNT 265 K/MM3 (134-434); RBC 2.46 M/mm3 (4.00-5.60); RDW 15.3 % (11.9-15.9); WHITE BLOOD COUNT 10.4 K/mm3 (4.0-10.0)
[2018-09-03 06:25] LABS: ALBUMIN 2.6 g/dl (3.4-5.0); ALK PHOS 83 U/L (45-117); ANION GAP 7 MMOL/L (8-16); BILIRUBIN,TOTAL 0.7 mg/dL (0.2-1); BLOOD UREA NITROGEN 43 mg/dL (7-18); CALCIUM 7.2 mg/dL (8.5-10.1); CHLORIDE 113 mmol/L (98-107); CO2 23 mmol/L (21-32); CREATININE 1.1 mg/dL (0.55-1.3); GLUCOSE,RANDOM 112 mg/dL (74-106); N-TERMINAL BNP 5051.5 pg/ml (5-450); POTASSIUM 4.4 mmol/L (3.5-5.1); SGOT/AST 30 U/L (15-37); SGPT/ALT 33 U/L (13-61); SODIUM 143 mmol/L (136-145); TOT PROT 5.3 g/dl (6.4-8.2)
--- NOTE | 2018-09-03 08:00 | PN ---
Progress Note (short form) - Note Progress Note: Pulm/CCM Pt seen and examined in the ICU 24HR: -Hgb dropping despite PRBC, being transfused now -hemodynamically stable -Fem TLC placed for IV access (not sterile, will need d/c or replacement) -plan for EGD at 11 am today -received plts given dysfunction on ASA and plavix Vital Signs Temp 98.8 F 09/03/18 06:00 Pulse 91 H 09/03/18 06:00 Resp 25 H 09/03/18 06:00 BP 134/67 09/03/18 06:00 Pulse Ox 99 09/02/18 22:00 Intake & Output 09/02/18 09/02/18 09/03/18 11:59 23:59 11:59 Intake Total 390 1960 Output Total 40 Balance 390 1920 Weight 72.575 kg 70.1 kg Intake: IVPB 250 800 Oral 140 Packed Cells 700 Platelets 460 Output: Urine 40 Void 40 Other: Voiding Method Urinal Urinal # Unmeasured Voids Void 2 2 Bowel Movement Yes Yes # Bowel Movements 2 4 Height 5 ft 7 in Body Mass Index (BMI) 25.0 Weight Measurement Method [facility]imated [facility] Medications Amiodarone HCl (Cordarone -) 200 mg PO DAILY [facility] Last Admin: 09/02/18 14:20 Dose: 200 mg Atorvastatin Calcium (Lipitor -) 40 mg PO HS [facility] Last Admin: 09/02/18 23:39 Dose: Not Given Doxycycline Hyclate (Vibramycin -) 100 mg PO BID@1000,1800 [facility] Last Admin: 09/02/18 18:41 Dose: Not Given Ceftriaxone Sodium 1 gm/ (Dextrose) 50 mls @ 100 mls/hr IVPB DAILY [facility]; Protocol Last Admin: 09/02/18 10:55 Dose: 100 mls/hr Pantoprazole Sodium 80 mg/ (Sodium Chloride) 100 mls @ 10 mls/hr IVPB Q10H [facility] Last Admin: 09/03/18 04:30 Dose: 10 mls/hr Phenytoin Sodium (Dilantin Injection -) 100 mg IVPB BID [facility] Last Admin: 09/03/18 03:00 Dose: 100 mg CBC, BMP 09/03/18 05:30 09/03/18 05:30 GENERAL:mildly confused, no distress HEAD: NC/AT EYES: R eye: pupil round, reactive to light; L eye: lev [place] paralyzed, could not assess EARS, NOSE, THROAT: WNL, NECK: Normal range of motion, supple without lymphadenopathy LUNGS: clear bilaterally HEART: paced rhythm no m/r/g apppreciated ABDOMEN: +bs, soft, non-distended, non-tenderd EXT: no edema,2+ pulses NEUROLOGICAL: L eye muscles paralyzed, 4/5 strength in LUE both deficits long- standing; otherwise no focal motor, sensory, or CN deficits appreciated SKIN: W/D intact, no rash ASSESSMENT/PLAN: 82 y/o M w/ PMHx CAD w/ AICD, CVA w/ residual L sided weakness , CHF with EF 20%, chronic ASA/Plavix, now with likley UGIB 1. GIB -IV Protonix -transfuse Hgb < 8, maintain adequate venous access -for EGDthis am, NPO -remainder as per GI 2. CAP -f/u cultures, antigens -ID following -Ceftriaxone/Doxycycline as per ID 3. CV -cardiology following -cont amiodarone, atorvastatin -hold all antihypertensinves u -hold ASA/plavix d/t bleeding 4.neuro -cont home dilantin 5.FEN -IVF PRN per volume assessment given Pt's reduced EF -monitor and correct electrolytes -NPO until EGD 6.PPx -DVT: SCDs -GI: PTX gtt Full Code ICU monitoring, readdress post EGD Ronda CHASE [id number] 35min CCT
[2018-09-03] MEDS ORDERED: cefTRIAXone SODIUM 1 GM VIAL ONE (09:35)
[2018-09-03] MEDS ORDERED: DEXTROSE 5%-WATER - 50 ML IVPB ONE (09:35)
[2018-09-03] MEDS ORDERED: PT OWN MED DRAWER 7, Y5N ONE ×2 (09:35→11:06)
[2018-09-03] MEDS ORDERED: ALBUTEROL SO4 2.5/IPRATROPIUM 0.5 INH SOL 3 ML VIAL.NEB. NEB PRN (09:43)
[2018-09-03] MEDS ORDERED: ACETAMINOPHEN 1000 MG/100 ML VIAL (NON FORMULARY) IVPB PRN (09:43)
--- NOTE | 2018-09-03 09:43 | PN ---
Progress Note, Physician Chief Complaint: SOB Pneumonia Rectal bleed History of Present Illness: NAD Plan for EGD today drop in H/H despite 3 units of PRBC within 24 hours Seen by Cardiology, pulmonary and GI On IV abx for PNE Daughter at bedside - Current Medication List Current Medications: Active Medications Amiodarone HCl (Cordarone -) 200 mg PO DAILY [facility] Last Admin: 09/02/18 14:20 Dose: 200 mg Atorvastatin Calcium (Lipitor -) 40 mg PO HS [facility] Last Admin: 09/02/18 23:39 Dose: Not Given Doxycycline Hyclate (Vibramycin -) 100 mg PO BID@1000,1800 [facility] Last Admin: 09/02/18 18:41 Dose: Not Given Ceftriaxone Sodium 1 gm/ (Dextrose) 50 mls @ 100 mls/hr IVPB DAILY [facility]; Protocol Last Admin: 09/02/18 10:55 Dose: 100 mls/hr Pantoprazole Sodium 80 mg/ (Sodium Chloride) 100 mls @ 10 mls/hr IVPB Q10H [facility] Last Admin: 09/03/18 04:30 Dose: 10 mls/hr Phenytoin Sodium (Dilantin Injection -) 100 mg IVPB BID [facility] Last Admin: 09/03/18 03:00 Dose: 100 mg - Objective Vital Signs: Vital Signs Temperature 98.5 F 09/03/18 08:00 Pulse Rate 84 09/03/18 08:00 Respiratory Rate 28 H 09/03/18 08:00 Blood Pressure 134/72 09/03/18 08:00 O2 Sat by Pulse Oximetry (%) 100 09/03/18 08:32 Constitutional: Yes: Well Nourished, No Distress, Calm Cardiovascular: Yes: Regular Rate and Rhythm Respiratory: Yes: Regular Gastrointestinal: Yes: Normal Bowel Sounds, Soft Genitourinary: Yes: WNL Musculoskeletal: Yes: Muscle Weakness Extremities: Yes: WNL Edema: No Peripheral Pulses WNL: Yes Neurological: Yes: Alert, Confusion, Pre-Existing Deficit Psychiatric: Yes: Alert Labs: CBC, BMP 09/03/18 05:30 09/03/18 05:30 INR, PTT INR 1.16 (0.83-1.09) H 09/02/18 08:10 Problem List - Problems (1) CAD (coronary artery disease) Assessment/Plan: -Cardiology consult -Aspirin + Plavix held due to acute rectal bleed -On statin and amiodarone for hx of NSVT -As per cardiology: NICM EF 20% (echo [facility] 06/2018: Severe left heart dilatation. Severe diffuse left ventricular hypokinesis. EF 25 % Severe mitral valve regurgitation. Moderate tricuspid valve regurgitation. Moderate pulmonary hypertension.) Chronic HFrEF on guideline directed therapy. Code(s): I25.10 - ATHSCL HEART DISEASE OF [place] CORONARY ARTERY W/O ANG PCTRS (2) GI bleeding Assessment/Plan: -GI consult -Guaiac positive -EGD today -Transfuse if Hg <7.0 to avoid fluid overload -On protonix drip Code(s): K92.2 - GASTROINTESTINAL HEMORRHAGE, UNSPECIFIED (3) Pneumonia Assessment/Plan: -Pulmonary consult on board -IV abx -Bronchodilators Code(s): J18.9 - PNEUMONIA, UNSPECIFIED ORGANISM Qualifiers: Pneumonia type: due to unspecified organism Laterality: right Lung location: unspecified part of lung Qualified Code(s): J18.9 - Pneumonia, unspecified organism Assessment/Plan see problem list
[2018-09-03] MEDS: AMIODARONE HCL 200 MG TABLET (FP) PO SCH (09:46)
[2018-09-03] MEDS: DOXYCYCLINE HYCLATE 100 MG CAPSULE PO SCH ×2 (09:46→18:09)
[2018-09-03] MEDS: CEFTRIAXONE 1 GM in DEXTROSE 5%-WATER - 50 ML IVPB SCH (09:47)
[2018-09-03] MEDS ORDERED: ROCURONIUM BROMIDE 50 MG/5 ML VIAL ONE (11:38)
[2018-09-03] MEDS ORDERED: ETOMIDATE 20 MG/10 ML AMPUL IVPUSH ONE (11:38)
[2018-09-03] MEDS ORDERED: MIDAZOLAM HCL 2 MG/2 ML SINGLE DOSE VIAL ONE (11:38)
[2018-09-03] MEDS ORDERED: EPINEPHrine 1:10,000 (P-F SYR) 1 MG/10 ML DISP.SYRIN ONE (11:51)
--- NOTE | 2018-09-03 11:52 | PN ---
Progress Note (short form) - Note Progress Note: seen earlier this am around 8 in the ICU got confused overnight NAD Vital Signs Period Temp Pulse Resp BP Sys/Stewart Pulse Ox Last 24 Hr 97.1 F-100.3 F 64-91 18-28 94-152/54-79 99-100 cor-rrr lungs bibasilar crackles abd soft,nt ext no edema blood tinged urine chapin domenico vest CBC, BMP 09/03/18 05:30 09/03/18 05:30 imp/reccd 82 yo man pmh with cad, chf, ppm/aicd cough for one week with SOB s/p amox for one week cxray with congestion and possible bibasilar infiltrates no fevers possible pneumonia possible chf rocephin/doxycycline to continue send legionella urinary antigen, influenza screen gi bleed- per GI endoscopy today Problem List - Problems (1) Pneumonia Code(s): J18.9 - PNEUMONIA, UNSPECIFIED ORGANISM Qualifiers: Pneumonia type: due to unspecified organism Laterality: right Lung location: unspecified part of lung Qualified Code(s): J18.9 - Pneumonia, unspecified organism (2) Acute exacerbation of CHF (congestive heart failure) Code(s): I50.9 - HEART FAILURE, UNSPECIFIED
[2018-09-03 16:22] LABS: HEMATOCRIT 29.3 % (35.4-49); HEMOGLOBIN 10.8 GM/dL (11.7-16.9); MCH 31.7 pg (25.7-33.7); MCHC 36.9 g/dl (32.0-35.9); MEAN PLT VOLUME 7.9 fl (7.5-11.1); PLATELET COUNT 267 K/MM3 (134-434); RDW 15.1 % (11.9-15.9); WHITE BLOOD COUNT 13.2 K/mm3 (4.0-10.0)
[2018-09-03 21:28] LABS: HEMATOCRIT 28.5 % (35.4-49); HEMOGLOBIN 10.5 GM/dL (11.7-16.9); MCH 31.4 pg (25.7-33.7); MCHC 36.6 g/dl (32.0-35.9); MEAN CELL VOLUME 85.8 fl (80-96); MEAN PLT VOLUME 8.1 fl (7.5-11.1); PLATELET COUNT 260 K/MM3 (134-434); RBC 3.32 M/mm3 (4.00-5.60); WHITE BLOOD COUNT 12.4 K/mm3 (4.0-10.0)
[2018-09-03] MEDS: ATORVASTATIN CA 40 MG TABLET (FP) PO SCH (22:40)
[2018-09-03] MEDS ORDERED: INSULIN (NOVOLOG) ASPART 100 UNITS/ML 10ML VIAL ONE (22:41)
[2018-09-04 06:27] LABS: HEMATOCRIT 28.2 % (35.4-49); HEMOGLOBIN 9.7 GM/dL (11.7-16.9); MCH 29.6 pg (25.7-33.7); MCHC 34.3 g/dl (32.0-35.9); MEAN CELL VOLUME 86.2 fl (80-96); MEAN PLT VOLUME 7.9 fl (7.5-11.1); PLATELET COUNT 225 K/MM3 (134-434); RBC 3.27 M/mm3 (4.00-5.60); RDW 15.1 % (11.9-15.9); WHITE BLOOD COUNT 12.4 K/mm3 (4.0-10.0)
[2018-09-04 07:00] LABS: ALBUMIN 2.7 g/dl (3.4-5.0); ALK PHOS 86 U/L (45-117); ANION GAP 9 MMOL/L (8-16); BILIRUBIN,TOTAL 0.7 mg/dL (0.2-1); BLOOD UREA NITROGEN 24 mg/dL (7-18); CALCIUM 7.8 mg/dL (8.5-10.1); CHLORIDE 115 mmol/L (98-107); CO2 21 mmol/L (21-32); CREATININE 0.9 mg/dL (0.55-1.3); GLUCOSE,RANDOM 92 mg/dL (74-106); N-TERMINAL BNP 9364.3 pg/ml (5-450); SGOT/AST 22 U/L (15-37); SGPT/ALT 26 U/L (13-61); SODIUM 144 mmol/L (136-145); TOT PROT 5.6 g/dl (6.4-8.2)
--- NOTE | 2018-09-04 07:40 | PN ---
Progress Note (short form) - Note Progress Note: Pulm/CCM Pt seen and examined in the ICU 24HR: -EGD without evidence of bleeding -hgb slight drifting down but > 9 -melena decreasing Vital Signs Temp 97.7 F 09/04/18 02:00 Pulse 77 09/04/18 04:00 Resp 18 09/04/18 04:00 BP 118/53 L 09/04/18 04:00 Pulse Ox 100 09/03/18 21:00 Intake & Output 09/03/18 09/03/18 09/04/18 11:59 23:59 11:59 Intake Total 2280 960 100 Output Total 40 1100 Balance 2240 -140 100 Weight 70.1 kg 66.905 kg Intake: IV 320 110 protonix 120 110 IVPB 800 850 100 Packed Cells 700 Platelets 460 Output: Urine 40 1000 Void 40 1000 Emesis 100 Other: Voiding Method Indwelling Catheter Indwelling Catheter # Unmeasured Voids Void 2 Bowel Movement Yes No # Bowel Movements 4 2 Weight Measurement Method Built in Bedscale Built in Bedscale Active Medications Acetaminophen (Ofirmev Injection -) 1,000 mg IVPB Q6H PRN PRN Reason: PAIN OR FEVER Albuterol/Ipratropium (Duoneb -) 1 amp NEB Q4H PRN PRN Reason: SHORTNESS OF BREATH Amiodarone HCl (Cordarone -) 200 mg PO DAILY [facility] Last Admin: 09/03/18 09:46 Dose: 200 mg Atorvastatin Calcium (Lipitor -) 40 mg PO HS [facility] Last Admin: 09/03/18 22:40 Dose: Not Given Doxycycline Hyclate (Vibramycin -) 100 mg PO BID@1000,1800 [facility] Last Admin: 09/03/18 18:09 Dose: 100 mg Ceftriaxone Sodium 1 gm/ (Dextrose) 50 mls @ 100 mls/hr IVPB DAILY [facility]; Protocol Last Admin: 09/03/18 09:47 Dose: 100 mls/hr Pantoprazole Sodium 80 mg/ (Sodium Chloride) 100 mls @ 10 mls/hr IVPB Q10H [facility] Last Admin: 09/03/18 23:30 Dose: 10 mls/hr Phenytoin Sodium (Dilantin Injection -) 100 mg IVPB BID [facility] Last Admin: 09/03/18 22:41 Dose: 100 mg CBC, BMP 09/04/18 05:30 12/30/18 05:30 GENERAL:awake alert, no distress HEAD: NC/AT EYES: R eye: pupil round, reactive to light; L eye: paralysis EARS, NOSE, THROAT: WNL, NECK: supple LUNGS: clear bilaterally HEART: paced rhythm no m/r/g apppreciated ABDOMEN: +bs, soft, non-distended, non-tenderd EXT: no edema,2+ pulses Neuro: non-focal SKIN: W/D intact, no rash ASSESSMENT/PLAN: 82 y/o M w/ PMHx CAD w/ AICD, CVA w/ residual L sided weakness , CHF with EF 20%, chronic ASA/Plavix, now with likley UGIB 1. GIB -IV Protonix -transfuse Hgb < 8, maintain adequate venous access -s/p EGD -remainder as per GI -clears today 2. CAP -cxl and flu swab neg -ID following -Ceftriaxone/Doxycycline as per ID 3. CV -cardiology following -cont amiodarone, atorvastatin -hold all antihypertensinves u -hold ASA/plavix d/t bleeding -BNP up -would start gentle diuresis 4.neuro -cont home dilantin 5.FEN -IVF PRN per volume assessment given Pt's reduced EF -monitor and correct electrolytes -clears 6.PPx -DVT: SCDs -GI: protonix Full Code Ok for medical floor Ronda ACNP 6147 35min CCT
--- NOTE | 2018-09-04 08:16 | PN ---
Progress Note (short form) - Note Progress Note: alert, nad no complaints s/p EGD yesterday nonbleeding ulcer per [employer] still some dark stool no cough Vital Signs Period Temp Pulse Resp BP Sys/Stewart Pulse Ox Last 24 Hr 97.7 F-99.4 F 64-89 18-26 118-154/53-79 97-100 cor-rrr lungs decreased bs at bases abd soft,nt ext no edema CBC, BMP 09/04/18 05:30 09/04/18 05:30 Microbiology 09/02/18 11:50 Urine For Antigen Detection Legionella Antigen - Final 09/02/18 11:50 Urine For Antigen Detection Streptococcus pneumoniae Antigen (M - Final imp/reccd 82 yo man pmh with cad, chf, ppm/aicd possible pneumonia possible chf rocephin/doxycycline to continue -day #4 antibioitcs influenza/legionella screens negative gi bleed- s/p EGC, f/u per GI Problem List - Problems (1) Pneumonia Code(s): J18.9 - PNEUMONIA, UNSPECIFIED ORGANISM Qualifiers: Pneumonia type: due to unspecified organism Laterality: right Lung location: unspecified part of lung Qualified Code(s): J18.9 - Pneumonia, unspecified organism (2) Acute exacerbation of CHF (congestive heart failure) Code(s): I50.9 - HEART FAILURE, UNSPECIFIED
--- NOTE | 2018-09-04 09:06 | PN ---
Progress Note, Physician Chief Complaint: SOB Pneumonia Rectal bleed History of Present Illness: NAD S/P EGD w/o evidence of bleeding mild drop in H/H but stable Seen by Cardiology, pulmonary and GI On IV abx for PNE Daughter at bedside - Current Medication List Current Medications: Active Medications Acetaminophen (Ofirmev Injection -) 1,000 mg IVPB Q6H PRN PRN Reason: PAIN OR FEVER Albuterol/Ipratropium (Duoneb -) 1 amp NEB Q4H PRN PRN Reason: SHORTNESS OF BREATH Amiodarone HCl (Cordarone -) 200 mg PO DAILY [facility] Last Admin: 09/03/18 09:46 Dose: 200 mg Atorvastatin Calcium (Lipitor -) 40 mg PO HS [facility] Last Admin: 09/03/18 22:40 Dose: Not Given Doxycycline Hyclate (Vibramycin -) 100 mg PO BID@1000,1800 [facility] Last Admin: 09/03/18 18:09 Dose: 100 mg Ceftriaxone Sodium 1 gm/ (Dextrose) 50 mls @ 100 mls/hr IVPB DAILY [facility]; Protocol Last Admin: 09/03/18 09:47 Dose: 100 mls/hr Pantoprazole Sodium 80 mg/ (Sodium Chloride) 100 mls @ 10 mls/hr IVPB Q10H [facility] Last Admin: 09/03/18 23:30 Dose: 10 mls/hr Phenytoin Sodium (Dilantin Injection -) 100 mg IVPB BID [facility] Last Admin: 09/03/18 22:41 Dose: 100 mg - Objective Vital Signs: Vital Signs Temperature 97.8 F 09/04/18 08:00 Pulse Rate 64 09/04/18 08:00 Respiratory Rate 20 09/04/18 08:00 Blood Pressure 128/64 09/04/18 08:00 O2 Sat by Pulse Oximetry (%) 100 09/04/18 08:15 Constitutional: Yes: Well Nourished, No Distress, Calm Cardiovascular: Yes: Regular Rate and Rhythm Respiratory: Yes: Regular, Rales (BLL) Gastrointestinal: Yes: Normal Bowel Sounds, Soft, Abdomen, Obese Musculoskeletal: Yes: Muscle Weakness Edema: No Peripheral Pulses WNL: Yes Neurological: Yes: Alert, Confusion Psychiatric: Yes: Alert Labs: CBC, BMP 09/04/18 05:30 09/04/18 05:30 INR, PTT INR 1.16 (0.83-1.09) H 09/02/18 08:10 Problem List - Problems (1) CAD (coronary artery disease) Assessment/Plan: -Cardiology consult -Aspirin + Plavix held due to acute rectal bleed -On statin and amiodarone for hx of NSVT -As per cardiology: NICM EF 20% (echo [facility] 06/2018: Severe left heart dilatation. Severe diffuse left ventricular hypokinesis. EF 25 % Severe mitral valve regurgitation. Moderate tricuspid valve regurgitation. Moderate pulmonary hypertension.) Chronic HFrEF on guideline directed therapy. Code(s): I25.10 - ATHSCL HEART DISEASE OF [place] CORONARY ARTERY W/O ANG PCTRS (2) GI bleeding Assessment/Plan: -GI consult -Guaiac positive -EGD w/o evidence of bleeding -Transfuse if Hg <7.0 to avoid fluid overload -On protonix drip -trial of clear liquid diet Code(s): K92.2 - GASTROINTESTINAL HEMORRHAGE, UNSPECIFIED (3) Pneumonia Assessment/Plan: -Pulmonary/ID consult on board -micro negative so far -IV abx -Bronchodilators Code(s): J18.9 - PNEUMONIA, UNSPECIFIED ORGANISM Qualifiers: Pneumonia type: due to unspecified organism Laterality: right Lung location: unspecified part of lung Qualified Code(s): J18.9 - Pneumonia, unspecified organism Assessment/Plan see problem list
[2018-09-04] MEDS ORDERED: cefTRIAXone SODIUM 1 GM VIAL ONE (09:30)
[2018-09-04] MEDS ORDERED: DEXTROSE 5%-WATER - 50 ML IVPB ONE (09:30)
[2018-09-04] MEDS ORDERED: PT OWN MED DRAWER 7, Y5N ONE (09:30)
[2018-09-04] MEDS: CEFTRIAXONE 1 GM in DEXTROSE 5%-WATER - 50 ML IVPB SCH (09:33)
[2018-09-04] MEDS: DOXYCYCLINE HYCLATE 100 MG CAPSULE PO SCH ×2 (09:33→17:02)
[2018-09-04] MEDS: PHENYTOIN SODIUM 100 MG/2 ML VIAL IVPB SCH ×2 (09:33→21:22)
[2018-09-04] MEDS: AMIODARONE HCL 200 MG TABLET (FP) PO SCH (09:33)
[2018-09-04] MEDS: PANTOPRAZOLE SODIUM 80 MG in SODIUM CHLORIDE 100 ML IVPB SCH ×2 (11:10→21:22)
[2018-09-04 17:57] VITALS: BMI 23.0
[2018-09-04] MEDS: ATORVASTATIN CA 40 MG TABLET (FP) PO SCH (21:22)
[2018-09-05 05:36] LABS: HEMATOCRIT 27.6 % (35.4-49); HEMOGLOBIN 9.2 GM/dL (11.7-16.9); MCH 29.6 pg (25.7-33.7); MCHC 33.4 g/dl (32.0-35.9); MEAN CELL VOLUME 88.5 fl (80-96); MEAN PLT VOLUME 7.9 fl (7.5-11.1); PLATELET COUNT 193 K/MM3 (134-434); RBC 3.12 M/mm3 (4.00-5.60); RDW 15.1 % (11.9-15.9); WHITE BLOOD COUNT 10.1 K/mm3 (4.0-10.0)
[2018-09-05] MEDS: PANTOPRAZOLE SODIUM 80 MG in SODIUM CHLORIDE 100 ML IVPB SCH (06:08)
[2018-09-05 06:55] LABS: ALBUMIN 2.6 g/dl (3.4-5.0); ANION GAP 7 MMOL/L (8-16); BILIRUBIN,TOTAL 0.6 mg/dL (0.2-1); BLOOD UREA NITROGEN 19 mg/dL (7-18); CALCIUM 7.8 mg/dL (8.5-10.1); CHLORIDE 114 mmol/L (98-107); CO2 23 mmol/L (21-32); CREATININE 0.9 mg/dL (0.55-1.3); GLUCOSE,RANDOM 93 mg/dL (74-106); N-TERMINAL BNP 3179.6 pg/ml (5-450); POTASSIUM 3.9 mmol/L (3.5-5.1); SGOT/AST 24 U/L (15-37); SGPT/ALT 27 U/L (13-61); SODIUM 143 mmol/L (136-145); TOT PROT 5.5 g/dl (6.4-8.2)
[2018-09-05 06:56] LABS: ALK PHOS 85 U/L (45-117)
[2018-09-05] MEDS ORDERED: cefTRIAXone SODIUM 1 GM VIAL ONE (09:09)
[2018-09-05] MEDS ORDERED: PT OWN MED DRAWER 7, Y5N ONE (09:09)
[2018-09-05] MEDS ORDERED: DEXTROSE 5%-WATER - 50 ML IVPB ONE (09:10)
[2018-09-05] MEDS: CEFTRIAXONE 1 GM in DEXTROSE 5%-WATER - 50 ML IVPB SCH (09:20)
[2018-09-05] MEDS: AMIODARONE HCL 200 MG TABLET (FP) PO SCH (09:20)
[2018-09-05] MEDS: PHENYTOIN SODIUM 100 MG/2 ML VIAL IVPB SCH (09:20)
[2018-09-05] MEDS: DOXYCYCLINE HYCLATE 100 MG CAPSULE PO SCH ×2 (09:21→17:26)
--- NOTE | 2018-09-05 11:10 | PN ---
Physical Exam: SUBJECTIVE: Patient seen and examined at bedside. Mental status improved. Abdominal pain resolved. No further bleeding. OBJECTIVE: Vital Signs Period Temp Pulse Resp BP Sys/Stewart Pulse Ox Last 24 Hr 98 F-98.8 F 63-78 12-24 98-122/48-72 98-98 GENERAL: A&Ox3, NAD HEAD: NC/AT EYES: R eye: pupil round, reactive to light; L eye: lev palpebrae paralyzed, could not assess EARS, NOSE, THROAT: MMM NECK: Normal range of motion, supple without lymphadenopathy LUNGS: CTA b/l HEART: paced rhythm no m/r/g ABDOMEN: +bs, soft, NT, ND UPPER EXTREMITIES: 2+ pulses, warm, well-perfused. No cyanosis. No clubbing. Cap refill <2 seconds. No peripheral edema. LOWER EXTREMITIES: 2+ pulses, warm, well-perfused. No calf tenderness. No peripheral edema. NEUROLOGICAL: L eye muscles paralyzed, 4/5 strength in LUE both deficits long- standing; otherwise no focal motor, sensory, or CN deficits appreciated PSYCHIATRIC: Cooperative. Good eye contact. Appropriate mood and affect. SKIN: Warm, dry, normal turgor, no rashes or lesions noted. Laboratory Results - last 24 hr 09/01/18 09/05/18 09/05/18 19:21 05:15 05:15 WBC 10.1 H RBC 3.12 L Hgb 9.2 L Hct 27.6 L MCV 88.5 MCH 29.6 MCHC 33.4 RDW 15.1 Plt Count 193 MPV 7.9 Sodium 143 Potassium 3.9 Chloride 114 H Carbon Dioxide 23 Anion Gap 7 L BUN 19 H Creatinine 0.9 Creat Clearance w eGFR > 60 Random Glucose 93 Calcium 7.8 L Total Bilirubin 0.6 AST 24 ALT 27 Alkaline Phosphatase 85 B-Natriuretic Peptide 3179.6 H Total Protein 5.5 L Albumin 2.6 L Crossmatch See Detail Active Medications Generic Name Dose Route Start Last Admin Trade Name Freq PRN Reason Stop Dose Admin Acetaminophen 1,000 mg 09/03/18 09:43 Ofirmev Injection - IVPB Q6H PRN PAIN OR FEVER Albuterol/Ipratropium 1 amp 09/03/18 09:43 Duoneb - NEB Q4H PRN SHORTNESS OF BREATH Amiodarone HCl 200 mg 09/02/18 10:00 09/05/18 09:20 Cordarone - PO 200 mg DAILY [facility] Administration Atorvastatin Calcium 40 mg 09/02/18 22:00 09/04/18 21:22 Lipitor - PO 40 mg HS [facility] Administration Doxycycline Hyclate 100 mg 09/02/18 18:00 09/05/18 09:21 Vibramycin - PO 100 mg BID@1000,1800 [facility] Administration Ceftriaxone Sodium 1 gm/ 50 mls @ 100 mls/hr 09/02/18 10:00 09/05/18 09:20 Dextrose IVPB 100 mls/hr DAILY [facility] Administration Protocol Pantoprazole Sodium 40 mg 09/05/18 11:00 Protonix Iv IVPUSH BID [facility] Phenytoin Sodium 100 mg 09/05/18 22:00 Dilantin - PO BID [facility] ASSESSMENT/PLAN: Patient is an 82 y/o M w/ PMHx CAD w/ AICD, CVA w/ residual L sided weakness, CHF with EF 20%, chronic ASA/Plavix, Sz disorder, episodes of NSVT on amiodoarone, p/w melena and hematochezia, additionally under treatment for CAP. #GIB -No active bleed per EGD -total 5U PRBC, 2U Plts given -PTX gtt switched to IV BID -H/H now stable -trend CBC -on clears -remainder as per GI #CAP -f/u cultures, antigens -ID following -Ceftriaxone/Doxycycline as per ID #CV -cardiology following -cont amiodarone, atorvastatin -hold lisinopril, furosemide, coreg to enable physiologic response to further bleeding if necessary -hold ASA/plavix d/t bleeding #neuro -cont home dilantin #FEN -IVF PRN per volume assessment given Pt's reduced EF -monitor and correct electrolytes -clear liquid diet, adv as per GI #PPx -DVT: SCDs -GI: IV PTX #code -full #dispo -transfer to med/surg Visit type - Emergency Visit Emergency Visit: No - New Patient This patient is new to me today: No - Critical Care Critical Care patient: Yes Total Critical Care Time (in minutes): 40 Critical Care Statement: The care of this patient involved high complexity decision making to prevent further life threatening deterioration of the patient 's condition and/or to evaluate & treat vital organ system(s) failure or risk of failure.
--- NOTE | 2018-09-05 11:29 | PN ---
Teaching Attending Note Name of Resident: Everton Burroughs ATTENDING PHYSICIAN STATEMENT I saw and evaluated the patient. I reviewed the resident's note and discussed the case with the resident. I agree with the resident's findings and plan as documented. SUBJECTIVE: Patient seen and examined at bedside. Awake and alert. Mental status improved. No abdominal pain. No further bleeding noted. OBJECTIVE: Intake & Output 09/02/18 09/03/18 09/04/18 09/05/18 23:59 23:59 23:59 23:59 Intake Total 390 3240 785 105 Output Total 1140 250 100 Balance 390 2100 535 5 Weight 160 lb 154 lb 8.705 oz 147 lb 149 lb Last Vital Signs Temp Pulse Resp BP Pulse Ox 98 F 74 18 120/72 98 09/05/18 10:00 09/05/18 10:00 09/05/18 10:00 09/05/18 10:00 09/05/18 09:00 Active Medications Acetaminophen (Ofirmev Injection -) 1,000 mg IVPB Q6H PRN PRN Reason: PAIN OR FEVER Albuterol/Ipratropium (Duoneb -) 1 amp NEB Q4H PRN PRN Reason: SHORTNESS OF BREATH Amiodarone HCl (Cordarone -) 200 mg PO DAILY [facility] Last Admin: 09/05/18 09:20 Dose: 200 mg Atorvastatin Calcium (Lipitor -) 40 mg PO HS [facility] Last Admin: 09/04/18 21:22 Dose: 40 mg Doxycycline Hyclate (Vibramycin -) 100 mg PO BID@1000,1800 [facility] Last Admin: 09/05/18 09:21 Dose: 100 mg Ceftriaxone Sodium 1 gm/ (Dextrose) 50 mls @ 100 mls/hr IVPB DAILY [facility]; Protocol Last Admin: 09/05/18 09:20 Dose: 100 mls/hr Pantoprazole Sodium (Protonix Iv) 40 mg IVPUSH BID [facility] Phenytoin Sodium (Dilantin -) 100 mg PO BID [facility] GENERAL: A&Ox3, NAD HEAD: NC/AT EYES: R eye: pupil round, reactive to light; L eye: ptosis EARS, NOSE, THROAT: MMM NECK: Normal range of motion, supple without lymphadenopathy LUNGS: CTA HEART: paced rhythm no m/r/g ABDOMEN: +bs, soft, NT, ND UPPER EXTREMITIES: 2+ pulses, warm, well-perfused. No cyanosis. No clubbing. Cap refill <2 seconds. No peripheral edema. LOWER EXTREMITIES: 2+ pulses, warm, well-perfused. No calf tenderness. No peripheral edema. NEUROLOGICAL: L eye muscles paralyzed, 4/5 strength in LUE both deficits long- standing; otherwise no focal motor, sensory, or CN deficits appreciated PSYCHIATRIC: Cooperative. Good eye contact. Appropriate mood and affect. SKIN: Warm, dry, normal turgor, no rashes or lesions noted. Laboratory Results - last 24 hr 09/01/18 09/05/18 09/05/18 19:21 05:15 05:15 WBC 10.1 H RBC 3.12 L Hgb 9.2 L Hct 27.6 L MCV 88.5 MCH 29.6 MCHC 33.4 RDW 15.1 Plt Count 193 MPV 7.9 Sodium 143 Potassium 3.9 Chloride 114 H Carbon Dioxide 23 Anion Gap 7 L BUN 19 H Creatinine 0.9 Creat Clearance w eGFR > 60 Random Glucose 93 Calcium 7.8 L Total Bilirubin 0.6 AST 24 ALT 27 Alkaline Phosphatase 85 B-Natriuretic Peptide 3179.6 H Total Protein 5.5 L Albumin 2.6 L Crossmatch See Detail ASSESSMENT/PLAN: Acute GI Bleed R/O CAP CAD AICD CVA w/ residual L sided weakness CHF with EF 20% Seizure disorder Episodes of NSVT Normal transfusion thresholds ABX per ID O2 as needed Mechanical VTE prophylaxis AC when cleared by GI PPI Advance PO per GI Follow cultures Cardiac Telemetry monitoring Critical care time spent in reviewing chart, evaluating patient and formulating plan - 36 minutes.
--- NOTE | 2018-09-05 12:07 | PN ---
Progress Note, Physician History of Present Illness: Awake, alert Breathing non-labored on RA Offers no complaints No c/o dyspnea/ cough Afebrile WBC improved - Current Medication List Current Medications: Active Medications Acetaminophen (Ofirmev Injection -) 1,000 mg IVPB Q6H PRN PRN Reason: PAIN OR FEVER Albuterol/Ipratropium (Duoneb -) 1 amp NEB Q4H PRN PRN Reason: SHORTNESS OF BREATH Amiodarone HCl (Cordarone -) 200 mg PO DAILY [facility] Last Admin: 09/05/18 09:20 Dose: 200 mg Atorvastatin Calcium (Lipitor -) 40 mg PO HS [facility] Last Admin: 09/04/18 21:22 Dose: 40 mg Doxycycline Hyclate (Vibramycin -) 100 mg PO BID@1000,1800 [facility] Last Admin: 09/05/18 09:21 Dose: 100 mg Ceftriaxone Sodium 1 gm/ (Dextrose) 50 mls @ 100 mls/hr IVPB DAILY [facility]; Protocol Last Admin: 09/05/18 09:20 Dose: 100 mls/hr Pantoprazole Sodium (Protonix Iv) 40 mg IVPUSH BID [facility] Phenytoin Sodium (Dilantin -) 100 mg PO BID [facility] - Objective Vital Signs: Vital Signs Temperature 98 F 09/05/18 10:00 Pulse Rate 74 09/05/18 10:00 Respiratory Rate 18 09/05/18 10:00 Blood Pressure 120/72 09/05/18 10:00 O2 Sat by Pulse Oximetry (%) 98 09/05/18 09:00 Constitutional: Yes: No Distress Eyes: Yes: Conjunctiva Clear Cardiovascular: Yes: Regular Rate and Rhythm, S1, S2 Respiratory: Yes: CTA Bilaterally Gastrointestinal: Yes: Normal Bowel Sounds, Soft. No: Tenderness Extremities: No: Calf Tenderness Edema: No Labs: CBC, BMP 09/05/18 05:15 09/05/18 05:15 INR, PTT INR 1.16 (0.83-1.09) H 09/02/18 08:10 Assessment/Plan Pneumonia/ CHF GI bleed Continue doxycycline/ ceftriaxone
[2018-09-05] MEDS: PANTOPRAZOLE SODIUM 40 MG VIAL IVPUSH SCH ×2 (12:32→22:08)
--- NOTE | 2018-09-05 12:48 | PN ---
Progress Note, Physician Chief Complaint: AWAKE ALERT IN ICU FEELING BETTER - Current Medication List Current Medications: Active Medications Acetaminophen (Ofirmev Injection -) 1,000 mg IVPB Q6H PRN PRN Reason: PAIN OR FEVER Albuterol/Ipratropium (Duoneb -) 1 amp NEB Q4H PRN PRN Reason: SHORTNESS OF BREATH Amiodarone HCl (Cordarone -) 200 mg PO DAILY [facility] Last Admin: 09/05/18 09:20 Dose: 200 mg Atorvastatin Calcium (Lipitor -) 40 mg PO HS [facility] Last Admin: 09/04/18 21:22 Dose: 40 mg Doxycycline Hyclate (Vibramycin -) 100 mg PO BID@1000,1800 [facility] Last Admin: 09/05/18 09:21 Dose: 100 mg Ceftriaxone Sodium 1 gm/ (Dextrose) 50 mls @ 100 mls/hr IVPB DAILY [facility]; Protocol Last Admin: 09/05/18 09:20 Dose: 100 mls/hr Pantoprazole Sodium (Protonix Iv) 40 mg IVPUSH BID [facility] Last Admin: 09/05/18 12:32 Dose: 40 mg Phenytoin Sodium (Dilantin -) 100 mg PO BID [facility] - Objective Vital Signs: Vital Signs Temperature 98 F 09/05/18 10:00 Pulse Rate 77 09/05/18 12:00 Respiratory Rate 20 09/05/18 12:00 Blood Pressure 118/63 09/05/18 12:00 O2 Sat by Pulse Oximetry (%) 98 09/05/18 09:00 Constitutional: Yes: Mild Distress Eyes: Yes: WNL HENT: Yes: WNL Neck: Yes: WNL Cardiovascular: Yes: Pulse Irregular Respiratory: Yes: Diminished, On Nasal O2 Gastrointestinal: Yes: Soft Genitourinary: Yes: WNL, Incontinence Musculoskeletal: Yes: Muscle Weakness Edema: Yes Peripheral Pulses WNL: Yes Wound/Incision: Yes: Clean/Dry Neurological: Yes: Pre-Existing Deficit, Unsteady Gait, Weakness ...Motor Strength: LLE, RLE Psychiatric: Yes: WNL Labs: CBC, BMP 09/05/18 05:15 09/05/18 05:15 INR, PTT INR 1.16 (0.83-1.09) H 09/02/18 08:10 Problem List - Problems (1) CVA, old, dysarthria Code(s): I69.322 - DYSARTHRIA FOLLOWING CEREBRAL INFARCTION (2) Dyspnea Code(s): R06.00 - DYSPNEA, UNSPECIFIED (3) GI bleeding Code(s): K92.2 - GASTROINTESTINAL HEMORRHAGE, UNSPECIFIED (4) Guaiac positive stools Code(s): R19.5 - OTHER FECAL ABNORMALITIES (5) History of seizure Code(s): Z87.898 - PERSONAL HISTORY OF OTHER SPECIFIED CONDITIONS (6) Pneumonia Code(s): J18.9 - PNEUMONIA, UNSPECIFIED ORGANISM Qualifiers: Pneumonia type: due to unspecified organism Laterality: right Lung location: unspecified part of lung Qualified Code(s): J18.9 - Pneumonia, unspecified organism Assessment/Plan IV ABX NEBS 02/RESP SUPPORT PULMONARY/ID FOLLOW UP APPRECIATED PT EVAL INCENTIVE SPIROMETRY OOB TO CHAIR MONITOR LABS/H/H GI BLEED STABLE DC PLANNING
--- NOTE | 2018-09-05 16:31 | EKG ---
Test Reason : Blood Pressure : / mmHG Vent. Rate : 063 BPM Atrial Rate : 063 BPM P-R Int : 140 ms QRS Dur : 178 ms QT Int : 524 ms P-R-T Axes : 075 -75 095 degrees QTc Int : 536 ms Atrial-sensed ventricular-paced rhythm WITH FREQUENT PREMATURE VENTRICULAR COMPLEXES ABNORMAL ECG WHEN COMPARED WITH ECG OF 30-NOV-2017 01:49, PREMATURE VENTRICULAR COMPLEXES ARE NOW PRESENT Confirmed by OLIVIA ADDISON, LAITH ([id number]) on 09/05/2018 4:31:25 PM Referred By: Confirmed By:LAITH BAKER MD
[2018-09-05] MEDS: PHENYTOIN NA EXTENDED 100 MG CAPSULE (FP) PO SCH (22:08)
[2018-09-05] MEDS: ATORVASTATIN CA 40 MG TABLET (FP) PO SCH (22:08)
[2018-09-06 06:01] LABS: BASO % 0.7 % (0-2.0); EOS % 3.4 % (0-4.5); HEMATOCRIT 28.2 % (35.4-49); HEMOGLOBIN 9.3 GM/dL (11.7-16.9); LYMPH % 16.7 % (8-40); MCH 29.8 pg (25.7-33.7); MCHC 33.1 g/dl (32.0-35.9); MEAN PLT VOLUME 8.3 fl (7.5-11.1); MONO % 9.4 % (3.8-10.2); NEUT % 69.8 % (42.8-82.8); PLATELET COUNT 199 K/MM3 (134-434); RBC 3.14 M/mm3 (4.00-5.60); RDW 14.9 % (11.9-15.9); WHITE BLOOD COUNT 9.8 K/mm3 (4.0-10.0)
[2018-09-06 06:33] LABS: ANION GAP 7 MMOL/L (8-16); BLOOD UREA NITROGEN 18 mg/dL (7-18); CALCIUM 7.6 mg/dL (8.5-10.1); CHLORIDE 113 mmol/L (98-107); CO2 23 mmol/L (21-32); GLUCOSE,RANDOM 85 mg/dL (74-106); PHOSPHOROUS 3.5 mg/dL (2.5-4.9); POTASSIUM 4.2 mmol/L (3.5-5.1); SODIUM 143 mmol/L (136-145)
--- NOTE | 2018-09-06 08:41 | PN ---
Physical Exam: SUBJECTIVE: Patient seen and examined at bedside. Feels well, no acute events overnight. Mental status improved. Abdominal pain resolved. No further bleeding. OBJECTIVE: Vital Signs Period Temp Pulse Resp BP Sys/Stewart Pulse Ox Last 24 Hr 98 F-98.6 F 60-77 15-25 111-125/53-72 98-98 GENERAL: A&Ox3, NAD HEAD: NC/AT EYES: R eye: pupil round, reactive to light; L eye: lev palpebrae paralyzed, could not assess EARS, NOSE, THROAT: MMM NECK: Normal range of motion, supple without lymphadenopathy LUNGS: CTA b/l HEART: paced rhythm no m/r/g ABDOMEN: +bs, soft, NT, ND UPPER EXTREMITIES: 2+ pulses, warm, well-perfused. No cyanosis. No clubbing. Cap refill <2 seconds. No peripheral edema. LOWER EXTREMITIES: 2+ pulses, warm, well-perfused. No calf tenderness. No peripheral edema. NEUROLOGICAL: L eye muscles paralyzed, 4/5 strength in LUE both deficits long- standing; otherwise no focal motor, sensory, or CN deficits appreciated PSYCHIATRIC: Cooperative. Good eye contact. Appropriate mood and affect. SKIN: Warm, dry, normal turgor, no rashes or lesions noted. Laboratory Results - last 24 hr 09/01/18 09/06/18 09/06/18 19:21 05:15 05:15 WBC 9.8 RBC 3.14 L Hgb 9.3 L Hct 28.2 L MCV 90.0 MCH 29.8 MCHC 33.1 RDW 14.9 Plt Count 199 MPV 8.3 Absolute Neuts (auto) 6.8 Neutrophils % 69.8 Lymphocytes % 16.7 D Monocytes % 9.4 Eosinophils % 3.4 D Basophils % 0.7 Nucleated RBC % 0 Sodium 143 Potassium 4.2 Chloride 113 H Carbon Dioxide 23 Anion Gap 7 L BUN 18 Creatinine 1.0 Creat Clearance w eGFR > 60 Random Glucose 85 Calcium 7.6 L Phosphorus 3.5 Magnesium 2.0 Blood Type O POSITIVE Antibody Screen Negative Crossmatch See Detail Active Medications Generic Name Dose Route Start Last Admin Trade Name Freq PRN Reason Stop Dose Admin Acetaminophen 1,000 mg 09/03/18 09:43 Ofirmev Injection - IVPB Q6H PRN PAIN OR FEVER Albuterol/Ipratropium 1 amp 09/03/18 09:43 Duoneb - NEB Q4H PRN SHORTNESS OF BREATH Amiodarone HCl 200 mg 09/02/18 10:00 09/05/18 09:20 Cordarone - PO 200 mg DAILY [facility] Administration Atorvastatin Calcium 40 mg 09/02/18 22:00 09/05/18 22:08 Lipitor - PO 40 mg HS [facility] Administration Doxycycline Hyclate 100 mg 09/02/18 18:00 09/05/18 17:26 Vibramycin - PO 100 mg BID@1000,1800 [facility] Administration Ceftriaxone Sodium 1 gm/ 50 mls @ 100 mls/hr 09/02/18 10:00 09/05/18 09:20 Dextrose IVPB 100 mls/hr DAILY [facility] Administration Protocol Pantoprazole Sodium 40 mg 09/05/18 11:00 09/05/18 22:08 Protonix Iv IVPUSH 40 mg BID [facility] Administration Phenytoin Sodium 100 mg 09/05/18 22:00 09/05/18 22:08 Dilantin - PO 100 mg BID [facility] Administration ASSESSMENT/PLAN: Patient is an 82 y/o M w/ PMHx CAD w/ AICD, CVA w/ residual L sided weakness, CHF with EF 20%, chronic ASA/Plavix, Sz disorder, episodes of NSVT on amiodoarone, p/w melena and hematochezia, additionally under treatment for CAP. #GIB -No active bleed per EGD -total 5U PRBC, 2U Plts given -PTX gtt switched to IV BID -H/H now stable -trend CBC -adv diet to cardiac -remainder as per GI #CAP -f/u cultures, antigens -ID following -Ceftriaxone/Doxycycline as per ID, now day 6 #CV -cardiology following -cont amiodarone, atorvastatin -hold lisinopril, furosemide, coreg to enable physiologic response to further bleeding if necessary -hold ASA/plavix d/t bleeding #neuro -cont home dilantin #FEN -no IVF -monitor and correct electrolytes -cardiac diet #PPx -DVT: SCDs -GI: IV PTX #code -full #dispo -transfer to med/surg Visit type - Emergency Visit Emergency Visit: No - New Patient This patient is new to me today: No - Critical Care Critical Care patient: Yes Total Critical Care Time (in minutes): 40 Critical Care Statement: The care of this patient involved high complexity decision making to prevent further life threatening deterioration of the patient 's condition and/or to evaluate & treat vital organ system(s) failure or risk of failure.
[2018-09-06] MEDS ORDERED: DEXTROSE 5%-WATER - 50 ML IVPB ONE (09:20)
[2018-09-06] MEDS ORDERED: cefTRIAXone SODIUM 1 GM VIAL ONE (09:20)
[2018-09-06] MEDS: AMIODARONE HCL 200 MG TABLET (FP) PO SCH (09:28)
[2018-09-06] MEDS: CEFTRIAXONE 1 GM in DEXTROSE 5%-WATER - 50 ML IVPB SCH (09:28)
[2018-09-06] MEDS: PHENYTOIN NA EXTENDED 100 MG CAPSULE (FP) PO SCH ×2 (09:28→21:45)
[2018-09-06] MEDS: PANTOPRAZOLE SODIUM 40 MG VIAL IVPUSH SCH ×2 (09:28→21:47)
--- NOTE | 2018-09-06 10:03 | PN ---
Teaching Attending Note Name of Resident: Everton Burroughs ATTENDING PHYSICIAN STATEMENT I saw and evaluated the patient. I reviewed the resident's note and discussed the case with the resident. I agree with the resident's findings and plan as documented. SUBJECTIVE: Patient seen and examined in the ICU. Awake and alert. Tolerating clear liquid intake. No abdominal pain. No further bleeding noted. OBJECTIVE: Intake & Output 09/03/18 09/04/18 09/05/18 09/06/18 23:59 23:59 23:59 23:59 Intake Total 3240 785 610 200 Output Total 1140 250 200 Balance 2100 535 410 200 Weight 154 lb 8.705 oz 147 lb 149 lb Last Vital Signs Temp Pulse Resp BP Pulse Ox 98.6 F 77 16 121/61 98 09/06/18 07:38 09/06/18 09:00 09/06/18 09:00 09/06/18 09:00 09/06/18 07:38 Active Medications Acetaminophen (Ofirmev Injection -) 1,000 mg IVPB Q6H PRN PRN Reason: PAIN OR FEVER Albuterol/Ipratropium (Duoneb -) 1 amp NEB Q4H PRN PRN Reason: SHORTNESS OF BREATH Amiodarone HCl (Cordarone -) 200 mg PO DAILY [facility] Last Admin: 09/06/18 09:28 Dose: 200 mg Atorvastatin Calcium (Lipitor -) 40 mg PO HS [facility] Last Admin: 09/05/18 22:08 Dose: 40 mg Doxycycline Hyclate (Vibramycin -) 100 mg PO BID@1000,1800 [facility] Last Admin: 09/05/18 17:26 Dose: 100 mg Ceftriaxone Sodium 1 gm/ (Dextrose) 50 mls @ 100 mls/hr IVPB DAILY [facility]; Protocol Last Admin: 09/06/18 09:28 Dose: 100 mls/hr Pantoprazole Sodium (Protonix Iv) 40 mg IVPUSH BID [facility] Last Admin: 09/06/18 09:28 Dose: 40 mg Phenytoin Sodium (Dilantin -) 100 mg PO BID [facility] Last Admin: 09/06/18 09:28 Dose: 100 mg GENERAL: A&Ox3, NAD HEAD: NC/AT EYES: R eye: pupil round, reactive to light; L eye: ptosis EARS, NOSE, THROAT: MMM NECK: Normal range of motion, supple without lymphadenopathy LUNGS: CTA HEART: paced rhythm no m/r/g ABDOMEN: +bs, soft, NT, ND UPPER EXTREMITIES: 2+ pulses, warm, well-perfused. No cyanosis. No clubbing. Cap refill <2 seconds. No peripheral edema. LOWER EXTREMITIES: 2+ pulses, warm, well-perfused. No calf tenderness. No peripheral edema. NEUROLOGICAL: L eye muscles paralyzed, 4/5 strength in LUE both deficits long- standing; otherwise no focal motor, sensory, or CN deficits appreciated PSYCHIATRIC: Cooperative. Good eye contact. Appropriate mood and affect. SKIN: Warm, dry, normal turgor, no rashes or lesions noted. Laboratory Results - last 24 hr 09/01/18 09/06/18 09/06/18 19:21 05:15 05:15 WBC 9.8 RBC 3.14 L Hgb 9.3 L Hct 28.2 L MCV 90.0 MCH 29.8 MCHC 33.1 RDW 14.9 Plt Count 199 MPV 8.3 Absolute Neuts (auto) 6.8 Neutrophils % 69.8 Lymphocytes % 16.7 D Monocytes % 9.4 Eosinophils % 3.4 D Basophils % 0.7 Nucleated RBC % 0 Sodium 143 Potassium 4.2 Chloride 113 H Carbon Dioxide 23 Anion Gap 7 L BUN 18 Creatinine 1.0 Creat Clearance w eGFR > 60 Random Glucose 85 Calcium 7.6 L Phosphorus 3.5 Magnesium 2.0 Blood Type O POSITIVE Antibody Screen Negative Crossmatch See Detail ASSESSMENT/PLAN: Acute GI Bleed Suspected CAP CAD AICD CVA w/ residual L sided weakness CHF with EF 20% Seizure disorder Episodes of NSVT Normal transfusion thresholds ABX per ID O2 as needed Mechanical VTE prophylaxis AC when cleared by GI PPI Advance PO per GI Cardiac Telemetry monitoring Dr Ashby
[2018-09-06] MEDS: DOXYCYCLINE HYCLATE 100 MG CAPSULE PO SCH (10:30)
--- NOTE | 2018-09-06 11:39 | PN ---
Progress Note, Physician History of Present Illness: Awake, alert Supine in bed Breathing non-labored on RA Offers no complaints No c/o dyspnea/ cough Afebrile WBC WNL Legionella ag (-) - Current Medication List Current Medications: Active Medications Acetaminophen (Ofirmev Injection -) 1,000 mg IVPB Q6H PRN PRN Reason: PAIN OR FEVER Albuterol/Ipratropium (Duoneb -) 1 amp NEB Q4H PRN PRN Reason: SHORTNESS OF BREATH Amiodarone HCl (Cordarone -) 200 mg PO DAILY [facility] Last Admin: 09/06/18 09:28 Dose: 200 mg Atorvastatin Calcium (Lipitor -) 40 mg PO HS [facility] Last Admin: 09/05/18 22:08 Dose: 40 mg Doxycycline Hyclate (Vibramycin -) 100 mg PO BID@1000,1800 [facility] Last Admin: 09/06/18 10:30 Dose: 100 mg Ceftriaxone Sodium 1 gm/ (Dextrose) 50 mls @ 100 mls/hr IVPB DAILY [facility]; Protocol Last Admin: 09/06/18 09:28 Dose: 100 mls/hr Pantoprazole Sodium (Protonix Iv) 40 mg IVPUSH BID [facility] Last Admin: 09/06/18 09:28 Dose: 40 mg Phenytoin Sodium (Dilantin -) 100 mg PO BID [facility] Last Admin: 09/06/18 09:28 Dose: 100 mg - Objective Vital Signs: Vital Signs Temperature 98.6 F 09/06/18 07:38 Pulse Rate 70 09/06/18 11:00 Respiratory Rate 17 09/06/18 11:00 Blood Pressure 126/62 09/06/18 11:00 O2 Sat by Pulse Oximetry (%) 98 09/06/18 07:38 Constitutional: Yes: No Distress Eyes: Yes: Conjunctiva Clear Cardiovascular: Yes: Regular Rate and Rhythm, S1, S2 Respiratory: Yes: Rhonchi Gastrointestinal: Yes: Normal Bowel Sounds, Soft. No: Tenderness Edema: No Labs: CBC, BMP 09/06/18 05:15 09/06/18 05:15 INR, PTT INR 1.16 (0.83-1.09) H 09/02/18 08:10 Assessment/Plan Pneumonia/ CHF GI bleed Continue ceftriaxone D/C doxycycline
[2018-09-06] MEDS ORDERED: ACETAMINOPHEN 1000 MG/100 ML VIAL (NON FORMULARY) IVPB PRN (11:45)
[2018-09-06] MEDS ORDERED: ALBUTEROL SO4 2.5/IPRATROPIUM 0.5 INH SOL 3 ML VIAL.NEB. NEB PRN (11:45)
--- NOTE | 2018-09-06 13:50 | PN ---
Progress Note, Physician Chief Complaint: AWAKE MORE ALERT DENIES CP/DYSPNEA - Current Medication List Current Medications: Active Medications Acetaminophen (Ofirmev Injection -) 1,000 mg IVPB Q6H PRN PRN Reason: PAIN OR FEVER Albuterol/Ipratropium (Duoneb -) 1 amp NEB Q4H PRN PRN Reason: SHORTNESS OF BREATH Amiodarone HCl (Cordarone -) 200 mg PO DAILY NEELA Atorvastatin Calcium (Lipitor -) 40 mg PO HS NEELA Ceftriaxone Sodium 1 gm/ (Dextrose) 50 mls @ 100 mls/hr IVPB DAILY NEELA; Protocol Pantoprazole Sodium (Protonix Iv) 40 mg IVPUSH BID NEELA Phenytoin Sodium (Dilantin -) 100 mg PO BID NEELA - Objective Vital Signs: Vital Signs Temperature 98.6 F 09/06/18 07:38 Pulse Rate 70 09/06/18 11:00 Respiratory Rate 17 09/06/18 11:00 Blood Pressure 126/62 09/06/18 11:00 O2 Sat by Pulse Oximetry (%) 98 09/06/18 07:38 Constitutional: Yes: No Distress Eyes: Yes: WNL HENT: Yes: WNL Neck: Yes: WNL Cardiovascular: Yes: Pulse Irregular Respiratory: Yes: Diminished, On Nasal O2 Gastrointestinal: Yes: Soft Genitourinary: Yes: WNL Musculoskeletal: Yes: Muscle Weakness Extremities: Yes: WNL Edema: No Peripheral Pulses WNL: Yes Integumentary: Yes: WNL Wound/Incision: Yes: Clean/Dry Neurological: Yes: Pre-Existing Deficit ...Motor Strength: LLE, RLE Psychiatric: Yes: WNL Labs: CBC, BMP 09/06/18 05:15 09/06/18 05:15 INR, PTT INR 1.16 (0.83-1.09) H 09/02/18 08:10 Problem List - Problems (1) CAD (coronary artery disease) Code(s): I25.10 - ATHSCL HEART DISEASE OF [place] CORONARY ARTERY W/O ANG PCTRS (2) Dyspnea Code(s): R06.00 - DYSPNEA, UNSPECIFIED (3) GI bleeding Code(s): K92.2 - GASTROINTESTINAL HEMORRHAGE, UNSPECIFIED (4) Guaiac positive stools Code(s): R19.5 - OTHER FECAL ABNORMALITIES (5) History of seizure Code(s): Z87.898 - PERSONAL HISTORY OF OTHER SPECIFIED CONDITIONS (6) Pneumonia Code(s): J18.9 - PNEUMONIA, UNSPECIFIED ORGANISM Qualifiers: Pneumonia type: due to unspecified organism Laterality: right Lung location: unspecified part of lung Qualified Code(s): J18.9 - Pneumonia, unspecified organism (7) Arrhythmia Code(s): I49.9 - CARDIAC ARRHYTHMIA, UNSPECIFIED (8) CVA, old, dysarthria Code(s): I69.322 - DYSARTHRIA FOLLOWING CEREBRAL INFARCTION Assessment/Plan IV ABX NEBS 02/RESP SUPPORT PULMONARY/ID FOLLOW UP APPRECIATED PT EVAL INCENTIVE SPIROMETRY OOB TO CHAIR MONITOR LABS/H/H GI BLEED STABLE DC PLANNING
[2018-09-06] MEDS ORDERED: ATORVASTATIN CA 40 MG TABLET (FP) PO SCH (22:00)
[2018-09-07 06:44] LABS: BASO % 0.6 % (0-2.0); EOS % 4.1 % (0-4.5); HEMATOCRIT 28.4 % (35.4-49); HEMOGLOBIN 9.5 GM/dL (11.7-16.9); LYMPH % 11.2 % (8-40); MCH 30.1 pg (25.7-33.7); MCHC 33.3 g/dl (32.0-35.9); MEAN CELL VOLUME 90.4 fl (80-96); MONO % 10.4 % (3.8-10.2); NEUT % 73.7 % (42.8-82.8); PLATELET COUNT 202 K/MM3 (134-434); RBC 3.14 M/mm3 (4.00-5.60); RDW 14.8 % (11.9-15.9); WHITE BLOOD COUNT 9.1 K/mm3 (4.0-10.0)
[2018-09-07 07:30] LABS: ANION GAP 7 MMOL/L (8-16); BLOOD UREA NITROGEN 21 mg/dL (7-18); CALCIUM 7.7 mg/dL (8.5-10.1); CHLORIDE 110 mmol/L (98-107); CO2 23 mmol/L (21-32); GLUCOSE,RANDOM 89 mg/dL (74-106); PHOSPHOROUS 3.6 mg/dL (2.5-4.9); POTASSIUM 3.9 mmol/L (3.5-5.1); SODIUM 140 mmol/L (136-145)
[2018-09-07] MEDS ORDERED: PT OWN MED DRAWER 7, Y5N ONE (09:12)
--- NOTE | 2018-09-07 09:41 | DS ---
Physical Examination Vital Signs: Vital Signs Temperature 98.2 F 09/07/18 05:00 Pulse Rate 78 09/07/18 05:00 Respiratory Rate 18 09/07/18 05:00 Blood Pressure 112/60 09/07/18 05:00 O2 Sat by Pulse Oximetry (%) 98 09/06/18 21:00 Constitutional: Yes: No Distress Eyes: Yes: WNL HENT: Yes: WNL Neck: Yes: WNL Cardiovascular: Yes: WNL Respiratory: Yes: WNL Gastrointestinal: Yes: WNL Renal/: Yes: WNL Musculoskeletal: Yes: Muscle Weakness Extremities: Yes: WNL Edema: No Peripheral Pulses WNL: Yes Integumentary: Yes: WNL Wound/Incision: Yes: Clean/Dry Neurological: Yes: Pre-Existing Deficit, Unsteady Gait ...Motor Strength: LLE, RLE Psychiatric: Yes: WNL Labs: CBC, BMP 09/07/18 05:30 09/07/18 05:30 Discharge Summary Reason For Visit: PNEUMONIA Current Active Problems CAD (coronary artery disease) (Acute) CVA, old, dysarthria (Acute) Dyspnea (Acute) GI bleeding (Acute) Guaiac positive stools (Acute) History of seizure (Acute) Pneumonia (Acute) Procedures: Principal: CT SCAN Hospital Course: ADMITTED PNEUMONIA, GI BLEED, TREATED IV ABX AND IV PROTONIX, WILL MONITOR OUTPATIENT. NO NEED FOR COLONOSCOPY AT THIS TIME GI BLEED HAS STABILIZED Condition: Stable - Instructions Diet, Activity, Other Instructions: SEE DR CRUMP IN 1 WEEK FOR LAB WORK Referrals: Sherice Crump MD [Primary Care Provider] - Disposition: VNS/HOME HEALTH CARE - Home Medications Comprehensive Discharge Medication List: Ambulatory Orders Amiodarone HCl 200 mg PO DAILY 11/29/17 Aspirin 81 mg PO DAILY 11/29/17 Atorvastatin Ca [Lipitor] 40 mg PO HS 11/29/17 Carvedilol 25 mg PO BID 11/29/17 Clopidogrel Bisulfate [Plavix] 75 mg PO DAILY 11/29/17 Phenytoin Na Extended [Dilantin -] 100 mg PO BID 11/29/17 Furosemide [Lasix -] 40 mg PO DAILY #30 tablet 12/03/17 Losartan Potassium 25 mg PO DAILY 09/02/18 Spironolactone 25 mg PO DAILY 09/02/18 traZODone HCL [Trazodone HCl] 50 mg PO HS 09/02/18
[2018-09-07 09:46] VITALS: BP 104/45; PULSE 74; TEMP 98
[2018-09-07] MEDS: PHENYTOIN NA EXTENDED 100 MG CAPSULE (FP) PO SCH (09:47)
[2018-09-07] MEDS ORDERED: CEFTRIAXONE 1 GM in DEXTROSE 5%-WATER - 50 ML IVPB SCH (10:00)
[2018-09-07] MEDS ORDERED: AMIODARONE HCL 200 MG TABLET (FP) PO SCH (10:00)
[2018-09-07] MEDS ORDERED: DEXTROSE 5%-WATER - 50 ML IVPB ONE (10:16)
[2018-09-07] MEDS ORDERED: cefTRIAXone SODIUM 1 GM VIAL ONE (10:16)
[2018-09-07] MEDS: PANTOPRAZOLE SODIUM 40 MG VIAL IVPUSH SCH (10:19)
--- NOTE | 2018-09-07 10:44 | PN ---
GI Progress Note Subjective: Denies melena, denies rectal bleeding. Denies abdominal pain, diarrhea. - Objective Vital Signs: Vital Signs Temperature 98 F 09/07/18 09:00 Pulse Rate 74 09/07/18 09:00 Respiratory Rate 20 09/07/18 09:00 Blood Pressure 104/45 L 09/07/18 09:00 O2 Sat by Pulse Oximetry (%) 98 09/06/18 21:00 Constitutional: Well Nourished, No Distress, Calm Eyes: Yes: Conjunctiva Clear Cardiovascular: Yes: WNL, Regular Rate and Rhythm Respiratory: Yes: Wheezes (inspiratory) Gastrointestinal Inspection: Yes: WNL ...Auscultate: Yes: Normoactive Bowel Sounds ...Palpate: Yes: Soft ...Percussion: Yes: Tympanitic Musculoskeletal: Yes: Muscle Weakness Neurological: Yes: Alert, Oriented Psychiatric: Yes: Alert, Oriented Labs: CBC, BMP 09/07/18 05:30 09/07/18 05:30 INR, PTT INR 1.16 (0.83-1.09) H 09/02/18 08:10 Problem List - Problems (1) GI bleeding Assessment/Plan: R> instructed to instruct the patient to follow up in 2 weeks okay to discharge today His hgb is stable for 3 days Code(s): K92.2 - GASTROINTESTINAL HEMORRHAGE, UNSPECIFIED
== END 2018-09-07 13:51 | disposition home health service (06) | DRG 193 ==
LOC: JER 16:04 → JERBED 23:53 → J4W 09-02 17:19 → JICU 09-02 19:12 → J4W 09-06 12:10
PROVIDERS: ADMIT Family Medicine; ATTEND Family Medicine
PROC: 30233N1 Transfusion of Nonautologous Red Blood Cells into Peripheral Vein, Percutaneous Approach (ICD-10-PCS; principal; 2018-09-02)
PROC: 05HM33Z Insertion of Infusion Device into Right Internal Jugular Vein, Percutaneous Approach (ICD-10-PCS; 2018-09-03)
PROC: B513ZZA Fluoroscopy of Right Jugular Veins, Guidance (ICD-10-PCS; 2018-09-03)
PROC: 30233R1 Transfusion of Nonautologous Platelets into Peripheral Vein, Percutaneous Approach (ICD-10-PCS; 2018-09-03)
DX: J18.9 Pneumonia, unspecified organism (principal); I50.23 Acute on chronic systolic (congestive) heart failure; K92.2 Gastrointestinal hemorrhage, unspecified; I69.354 Hemiplegia and hemiparesis following cerebral infarction affecting left non-dominant side; I42.9 Cardiomyopathy, unspecified; I11.0 Hypertensive heart disease with heart failure; I25.10 Atherosclerotic heart disease of native coronary artery without angina pectoris; R56.9 Unspecified convulsions; E78.5 Hyperlipidemia, unspecified; Z95.810 Presence of automatic (implantable) cardiac defibrillator; I25.2 Old myocardial infarction; H54.62 Unqualified visual loss, left eye, normal vision right eye; R19.5 Other fecal abnormalities; I73.9 Peripheral vascular disease, unspecified; I27.20 Pulmonary hypertension, unspecified; I36.1 Nonrheumatic tricuspid (valve) insufficiency
CPT/HCPCS: 36415; 36430; 71045-TC-FY; 80048; 80053; 80185; 82272; 83735; 83880; 84100; 84484; 85025; 85027; 85610; 85730; 86850; 86900; 86901; 86922; 87804; 87899; 93005; 93010; 94010; 99285-25; P9034; P9038; P9058

== ENCOUNTER 2019-02-23 06:52 | Day surgery (SDC) | payer BC, OTHER | END 2019-02-23 10:15 | disposition home or self-care (01) | LOC: JASU-ENDO 06:52 ==